=== PATIENT | male | born 1965 | race Two or more races ===

== ENCOUNTER 2025-02-05 10:51 | Inpatient (IN) | payer OTHER ==
[~2025-02-05] VITALS: Ht 193 cm; Wt 108.3 kg
--- NOTE | 2025-02-05 11:29 | ED.PDOC ---
History of Present Illness(SKN HPI Comments 60 y/o M, with PMHx of DM presents to the ED for CC of wound check. Patient reports, that he had his great left toe amputated o7lincu ago, and is in need of wound care. Patient complains, of current 8/10 left foot pain. Patient denies recent fall, injury, or trauma. No other symptoms or modifying factors present at this time. Chief Complaint: Wound Check Time Seen by MD: 11:20 History of Present Illness: Nurses Notes, Medications, Allergies Allergies: Coded Allergies: Penicillins (Verified Allergy, Unknown, 02/05/25) Information Source: Patient Mode of Arrival: Wheelchair Severity: Moderate Timing: Months Duration: Since onset Prehospital treatment: None Location: Foot Developed: Other Condition of Object: None Immunization Status of Animal: NA Tetanus: Unknown History of: Diabetes Associated Signs and Symptoms: None Past Medical History PAST MEDICAL HISTORY: DM Surgical History (Other): left great toe amputation, left ear drum Family History Family History: Family hx of DM Social History Smoker: Non-Smoker Alcohol: Occasionally Drugs: Denies Drug Use Lives In: Home Constitutional: denies: chills, diaphoresis, fatigue, fever, malaise, sweats, weakness, others EENTM: denies: blurred vision, double vision, ear bleeding, ear discharge, ear drainage, ear pain, ear ringing, eye pain, eye redness, hearing loss, mouth pain, mouth swelling, nasal discharge, nose bleeding, nose congestion, nose pain, photophobia, tearing, throat pain, throat swelling, voice changes, others Respiratory: denies: cough, hemoptysis, orthopnea, SOB at rest, shortness of breath, SOB with excertion, stridor, wheezing, others Cardiovascular: denies: chest pain, dizzy spells, diaphoresis, Dyspnea on exertion, edema, irregular heart beat, left arm pain, lightheadedness, palpitations, PND, syncope, others Gastrointestinal: denies: abdomen distended, abdominal pain, blood streaked bowels, constipated, diarrhea, dysphagia, difficulty swallowing, hematemesis, melena, nausea, poor appetite, poor fluid intake, rectal bleeding, rectal pain, vomiting, others Genitourinary: denies: burning, dysuria, flank pain, frequency, hematuria, incontinence, penile discharge, penile sore, pain, testicle pain, testicle swelling, urgency, others Neurological: denies: dizziness, fainting, headache, left sided numbness, left sided weakness, numbness, paresthesia, pre-existing deficit, right sided numbness, right sided weakness, seizure, speech problems, tingling, tremors, weakness, others Musculoskeletal: reports: others (left-foot pain); denies: back pain, gout, joint pain, joint swelling, muscle pain, muscle stiffness, neck pain Integumetry: denies: bruises, change in color, change in hair/nails, dryness, laceration, lesions, lumps, rash, wounds, others Allergic/Immunocompromised: denies: Difficulty Healing, Frequent Infections, Hives, Itching, others Hematologic/Lymphatic: denies: anemia, blood clots, easy bleeding, easy bruisin g, swollen glands, others Endocrine: denies: excessive hunger, excessive sweating, excessive thirst, excessive urination, flushing, intolerance to cold, intolerance to heat, unexplained weight gain, unexplained weight loss, others Psychiatric: denies: anxiety, bipolar disorder, depression, hopeless, panic disorder, schizophrenia, sleepless, suicidal, others All Other Systems: Reviewed and Negative Physical Exam General Appearance: Moderate Distress HEENT: Normal ENT Inspection, Pharynx Normal, TMs Normal Neck: Full Range of Motion, Non-Tender, Normal, Normal Inspection Respiratory: Chest Non-Tender, Lungs Clear, No Accessory Muscle Use, No Respiratory Distress, Normal Breath Sounds Cardiovascular: No Edema, No JVD, No Murmur, No Gallop, Normal Peripheral Pulses, Regular Rate/Rhythm Breast Exam: Deferred Gastrointestinal: No Organomegaly, Non Tender, No Pulsatile Mass, Normal Bowel Sounds, Soft Genitalia: Deferred Pelvic: Deferred Rectal: Deferred Extremities: No calf tenderness, Normal capillary refill, Normal inspection, Normal range of motion, Non-tender, No pedal edema Musculoskeletal : Apperance: Normal Neurologic: Alert, core sucker II-XII nml as Tested, No Motor Deficits, Normal Affect, Normal Mood, No Sensory Deficits Cerebellar Function: Normal Reflexes: Normal Skin: Dry, Normal Color, Warm Lymphatic: No Adenopathy Was a procedure done? Was a procedure done?: No Differential Diagnosis (INTG) Differential Diagnosis: Cellulitis, Puncture Wound, Other (Osteomyelitis) Differential Diagnosis: Cellulitis, Osteomyelitis X-Ray, Labs, Meds, VS Vital Signs Date Time Temp Pulse Resp B/P (MAP) Pulse Ox O2 Delivery O2 Flow Rate FiO2 02/05/25 16:04 97.7 88 17 146/83 (104) 97 97.7 02/05/25 14:17 97.3 85 18 146/82 (103) 98 97.3 02/05/25 12:20 97.8 90 18 153/75 (101) 97 97.8 02/05/25 12:20 90 18 97 Room Air* 0 21 02/05/25 11:24 98.1 95 18 148/78 (101) 98 98.1 Lab Test 02/05/25 12:03 Range/Units White Blood Count 10.6 4.4-10.8 10^3/uL Red Blood Count 4.17 L 4.5-5.90 10^6/uL Hemoglobin 11.8 L 13.5-17.5 g/dL Hematocrit 34.6 L 41.0-53.0 % Mean Corpuscular Volume 83.0 80.0-100.0 fL Mean Corpuscular Hemoglobin 28.3 28.0-32.0 pg Mean Corpuscular Hemoglobin Concent 34.1 32.0-36.0 g/dL Red Cell Distribution Width 14.5 H 11.8-14.3 % Platelet Count 375 140-450 10^3/uL Mean Platelet Volume 7.3 6.9-10.8 fL Neutrophils (%) (Auto) 78.0 37.0-80.0 % Lymphocytes (%) (Auto) 12.2 10.0-50.0 % Monocytes (%) (Auto) 8.6 0.0-12.0 % Eosinophils (%) (Auto) 0.7 0.0-7.0 % Basophils (%) (Auto) 0.5 0.0-2.0 % Neutrophils # (Auto) 8.3 1.6-8.6 10 ^3/uL Lymphocytes # (Auto) 1.3 0.4-5.4 10 ^3/uL Monocytes # (Auto) 0.9 0-1.3 10 ^3/uL Eosinophils # (Auto) 0.1 0-0.8 10 ^3/uL Basophils # (Auto) 0.1 0-0.2 10 ^3/uL Nucleated Red Blood Cells 0.1 % Erythrocyte Sedimentation Rate 78 H 0-20 mm/hr Sodium Level 130 L 136-145 mmol/L Potassium Level 4.1 3.5-5.1 mmol/L Chloride Level 94 L 98-107 mmol/L Carbon Dioxide Level 27 20-31 mmol/L Anion Gap 9 5-15 Blood Urea Nitrogen 14 9-23 mg/dL Creatinine 1.38 H 0.700-1.30 mg/dL Glomerular Filtration Rate Calc 59 >90 mL/min BUN/Creatinine Ratio 10.1 10.0-20.0 Serum Glucose 380 H 74-106 mg/dL Calcium Level 8.9 8.7-10.4 mg/dL Current Medications Medications (Trade) Dose Ordered Sig/Carlos Route Start Time Stop Time Status Last Admin Clindamycin Phosphate 50 ml @ 50 mls/hr ONCE ONCE IV 02/05/25 11:30 02/05/25 12:29 DC 02/05/25 12:27 CT L-FOOT: FINDINGS: The alignment is normal. The joint spaces are normal. There is no fracture, dislocation, or focal osseous lesions. Missing multiple toes with osteoporotic changes. Recommend MRI for further evaluation to exclude osteomyelitis. The soft tissues are normal. IMPRESSION: 1. All CT scans at this medical facility are performed using dose modulation techniques as appropriate to a performed exam including the following: Automated exposure control was utilized; adjustment of the MA and/or KV according to patient size; and use of iterative reconstruction technique. The patient's CBC shows anemia with a hemoglobin of 11.8 The chemistry panel is within normal limits except for creatinine of 1.38 The patient's ESR is 78 The patient is hyperglycemic at 380 At this time, the patient is being admitted to the hospitalist The patient was given clindamycin IV piggyback for the infection to the foot. We can not rule out osteomyelitis Images Reviewed?: Images reviewed and evaluated by me Time of 1ST Reevaluation: 11:50 Reevaluation 1ST: Unchanged Patient Education/Counseling: Diagnosis, Treatment, Prognosis Family Education/Counseling: No Family Present Departure 1 Departure Time of Disposition: 17:42 Impression: Primary Impression: Uncontrolled diabetes mellitus Qualified Codes: E13.65 - Other specified diabetes mellitus with hyperglycemia Additional Impression: Cellulitis of left foot Disposition: ADMITTED INPATIENT Admit to: Med Surg Condition: Fair Critical Care Note Critical Care Time?: No Stability Stability form required: Yes Unstable for transfer: ED Physician Assesment (Clinical assesment) Heart Score Heart Score: Heart Score Response (Comments) Value History N/A 0 EKG N/A 0 Age N/A 0 Risk Factors N/A 0 Troponin N/A 0 Total 0 I personally scribed for MILANA LEVI MD ([email or web address]) on 02/05/25 at 11:29. Electronically submitted by Thao Stokes ([email or web address]). I personally scribed for MILANA LEVI MD ([email or web address]) on 02/05/25 at 17:32. Electronically submitted by Thao Stokes ([email or web address]). MILANA LEVI MD Feb 05, 2025 11:29
[2025-02-05 12:20] VITALS: PULSE 90; RESP 18; O2SAT 97
[2025-02-05 12:20] LABS: Potassium 4.1 mmol/L (3.5-5.1)
[2025-02-05 12:21] LABS: Carbon Dioxide 27 mmol/L (20-31)
[2025-02-05 12:22] LABS: Calcium 8.9 mg/dL (8.7-10.4)
[2025-02-05 12:23] LABS: Anion Gap 9 (5-15); Chloride 94 mmol/L (98-107); Sodium 130 mmol/L (136-145)
[2025-02-05 12:27] LABS: BUN/Creatinine Ratio 10.1 (10.0-20.0); Blood Urea Nitrogen 14 mg/dL (9-23); Glucose 380 mg/dL (74-106)
[2025-02-05] MEDS: CLINDAMYCIN 600MG IV 50 ML IV ONE (12:27)
[2025-02-05 12:30] LABS: Basophils # (auto) 0.1 10 ^3/uL (0-0.2); Basophils % (auto) 0.5 % (0.0-2.0); Eosinophils # (auto) 0.1 10 ^3/uL (0-0.8); Eosinophils % (auto) 0.7 % (0.0-7.0); Hematocrit 34.6 % (41.0-53.0); Hemoglobin 11.8 g/dL (13.5-17.5); Lymphocytes # (auto) 1.3 10 ^3/uL (0.4-5.4); Lymphocytes % (auto) 12.2 % (10.0-50.0); Mean Corpuscular Hemoglobin 28.3 pg (28.0-32.0); Mean Corpuscular Hgb Conc. 34.1 g/dL (32.0-36.0); Monocytes # (auto) 0.9 10 ^3/uL (0-1.3); Monocytes % (auto) 8.6 % (0.0-12.0); Neutrophils # (auto) 8.3 10 ^3/uL (1.6-8.6); Nucleated Red Blood Cells % 0.1 %; Platelet Count (auto) 375 10^3/uL (140-450); Red Blood Cells 4.17 10^6/uL (4.5-5.90); Red Cell Distribution Width 14.5 % (11.8-14.3); White Blood Cell 10.6 10^3/uL (4.4-10.8)
[2025-02-05 13:19] LABS: Erythrocyte Sedimentation Rate 78 mm/hr (0-20)
--- NOTE | 2025-02-05 17:28 | DVH ---
INDICATION: pain and infection COMPARISON: None TECHNIQUE: CT of the right was performed without contrast. Volume transverse images were obtained and reconstructed in multiple planes using bone and soft tissue algorithms. CONTRAST: None Radiation Dose Information: CT Dose: CTDI volume is 7.75 mGy. Dose-length product is 188.65 mGy*cm FINDINGS: The alignment is normal. The joint spaces are normal. There is no fracture, dislocation, or focal osseous lesions. Missing multiple toes with osteoporotic changes. Recommend MRI for further evaluation to exclude oste omyelitis. The soft tissues are normal. IMPRESSION: 1. All CT scans at this medical facility are performed using dose modulation techniques as appropriat e to a performed exam including the following: Automated exposure control was utilized; adjustment of the MA and/or KV according to patient size; and use of iterative reconstruction technique.
[2025-02-05] MEDS ORDERED: VANCOMYCIN PER PHARMACY 0 MG IV SCH (22:15)
[2025-02-05] MEDS ORDERED: ACETAMINOPHEN 325 MG TAB PO PRN (22:15)
[2025-02-05 22:25] LABS: Triglycerides 130 mg/dL (< 150)
[2025-02-05 22:27] LABS: Cholesterol 188 mg/dL (< 200); HDL Cholesterol 50 mg/dL (40-59)
[2025-02-05 22:37] LABS: LDL Cholesterol 126 mg/dL (< 100)
[2025-02-05] MEDS ORDERED: DEXTROSE (50%) 50ML SYRG IV PRN (23:30)
--- NOTE | 2025-02-05 23:32 | DVHHPRES ---
History of Present Illness Resident Creating Document: AMELIA OH History of Present Illness This is a 60-year-old male with past medical history of type 2 diabetes mellitus (noncompliant with any medication and states he does not take any medication at home), the patient presented to the ED with chief complaint of left foot wound. The patient reports that has been having a wound/ulcer in the plantar aspect of the left foot just inferior to the 1st metatarsal bone that has been going on for months. The patient states that yesterday for coming to the ED, he was in psych the [place] after that he noticed it that the wound got painful and started to slightly bleed and have a fool smelling. The patient reports that one year ago he got big toe amputation of the left foot due to a diabetic wound ulcer that was not healing and took IV antibiotics for several weeks. The patient denies fever, chills, lower extremity swelling, chest pain, shortness of breath or any additional symptoms. Upon admission, WBC was slightly elevated, BUN and creatinine were 14 and 1.38 respectively and blood sugar was elevated at 380. Initial CT scan of the left foot showed no fracture, dislocation or focal osseous lesions but was not able to rule out completely osteomyelitis. We will start the patient on IV antibiotics, perform an MRI of the left foot, consult furnace utility operator and admit the patient for further assessment and management. Past medical history: Type 2 diabetes mellitus Home medications: Denies Surgical history: Left big toe amputation one year ago with IV antibiotics for several weeks Social history: Reports occasional alcohol intake but denies any drug intake and states that quit smoking two years ago. Endocrine: Diabetes Past Surgical History: Other (Big left toe amputation) Family History: None Smoke: Quit ALCOHOL: occassional Drugs: None Lives: with Family Domestic Violence: Neg Review of Systems Constitutional: No: Fever, Chills, Sweats, Weakness, Malaise, Other Eyes: No: Pain, Vision change, Conjunctivae inflammation, Eyelid inflammation, Other, Redness ENT: No: Ear pain, Ear discharge, Nose pain, Nose discharge, Nose congestion, Mouth pain, Mouth swelling, Throat pain, Throat swelling, Other Respiratory: No: Cough, Dry, Shortness of breath, SOB with excertion, Wheezing, Hemoptysis, Pleuritic Pain, Sputum, Wheezing, Other Cardiovascular: No: Chest Pain, Palpitations, Orthopnea, Paroxysmal Noc. Dyspnea, Edema, Lt Headedness, Other Gastrointestinal: No: Nausea, Vomiting, Abdominal Pain, Diarrhea, Constipation, Melena, Hematochezia, Other Genitourinary: No Dysuria, No Frequency, No Incontinence, No Hematuria, No Retention, No Other Musculoskeletal: foot pain (Left foot pain at the plantar aspect just below the 1st metatarsal joint); No: other, neck pain, shoulder pain, arm pain, back pain, hand pain, leg pain Skin: Lesions (Wound/ulcer in the plantar aspect of the left foot, with full smelling); No: Rash, Jaundice, Bruising, Other Neurological: No: Weakness, Numbness, Incoordination, Change in speech, Confusion, Seizures, Other Allergies: Coded Allergies: Penicillins (Verified Allergy, Unknown, 02/05/25) Medications Current Medications Medications Dose Ordered Sig/Carlos Route Start Time Stop Time Status Last Admin Dose Admin Acetaminophen 650 mg Q6HP PRN PO 02/05/25 22:15 Acetaminophen/ Hydrocodone Bitart 1 tab Q4HP PRN PO 02/05/25 22:15 Vancomycin HCl 0 ml @ 0 mls/hr UD IV 02/05/25 22:15 UNV Cefepime HCl 50 ml @ 12.5 mls/hr Q12HR IV 02/05/25 22:15 Exam Vital Signs Vital Signs Date Time Temp Pulse Resp B/P (MAP) Pulse Ox O2 Delivery O2 Flow Rate FiO2 02/05/25 19:59 97.7 95 16 153/98 (116) 97 97.7 02/05/25 12:20 Room Air* 0 21 General Appearance: Alert, Oriented X3, Cooperative, No acute distress HEENT: Atraumatic, PERRLA, EOMI, Mucous membr. moist/pink Respiratory: Clear to auscultation, Normal air movement Cardiovascular: Regular rate, Normal S1, Normal S2, No murmurs Abdominal: Normal bowel sounds, Soft, No tenderness, No hepatospenomegaly, No masses Extremities: No clubbing, No cyanosis, Normal pulses, Other (There is a moderate open wounds/ulcer at the plantar aspect of the left foot just below the 1st metatarsal joint which is slightly bleeding and having a full smelling. There is also swelling of the left foot in the dorsal aspect.) Skin: No rashes, No breakdown Neuro: Normal gait, Normal speech, Strength at 5/5 X4 ext, Normal tone, Sensation intact, Cranial nerves 3-12 NL, Reflexes 2+ Psych/Mental Status: Mental status NL, Mood NL Labs/Xrays Labs Test 02/05/25 20:44 02/05/25 12:03 Range/Units Lactic Acid Level 1.7 0.4-2.0 mmol/L White Blood Count 10.6 4.4-10.8 10^3/uL Red Blood Count 4.17 L 4.5-5.90 10^6/uL Hemoglobin 11.8 L 13.5-17.5 g/dL Hematocrit 34.6 L 41.0-53.0 % Mean Corpuscular Volume 83.0 80.0-100.0 fL Mean Corpuscular Hemoglobin 28.3 28.0-32.0 pg Mean Corpuscular Hemoglobin Concent 34.1 32.0-36.0 g/dL Red Cell Distribution Width 14.5 H 11.8-14.3 % Platelet Count 375 140-450 10^3/uL Mean Platelet Volume 7.3 6.9-10.8 fL Neutrophils (%) (Auto) 78.0 37.0-80.0 % Lymphocytes (%) (Auto) 12.2 10.0-50.0 % Monocytes (%) (Auto) 8.6 0.0-12.0 % Eosinophils (%) (Auto) 0.7 0.0-7.0 % Basophils (%) (Auto) 0.5 0.0-2.0 % Neutrophils # (Auto) 8.3 1.6-8.6 10 ^3/uL Lymphocytes # (Auto) 1.3 0.4-5.4 10 ^3/uL Monocytes # (Auto) 0.9 0-1.3 10 ^3/uL Eosinophils # (Auto) 0.1 0-0.8 10 ^3/uL Basophils # (Auto) 0.1 0-0.2 10 ^3/uL Nucleated Red Blood Cells 0.1 % Erythrocyte Sedimentation Rate 78 H 0-20 mm/hr Sodium Level 130 L 136-145 mmol/L Potassium Level 4.1 3.5-5.1 mmol/L Chloride Level 94 L 98-107 mmol/L Carbon Dioxide Level 27 20-31 mmol/L Anion Gap 9 5-15 Blood Urea Nitrogen 14 9-23 mg/dL Creatinine 1.38 H 0.700-1.30 mg/dL Glomerular Filtration Rate Calc 59 >90 mL/min BUN/Creatinine Ratio 10.1 10.0-20.0 Serum Glucose 380 H 74-106 mg/dL Hemoglobin A1c 10.7 H <5.7 % A1C Calcium Level 8.9 8.7-10.4 mg/dL Triglycerides Level 130 < 150 mg/dL Cholesterol Level 188 < 200 mg/dL LDL Cholesterol 126 H < 100 mg/dL HDL Cholesterol 50 40-59 mg/dL Assessment/Plan Assessment/Plan Assessment/plan Acute infected diabetic foot ulcer of the left foot Acute cellulitis of the left foot R/O osteomyelitis of the left foot Uncontrolled type 2 diabetes mellitus with hyperglycemia ROSENDA likely due to vasomotor nephropathy History of left big toe amputation Plan -initial CT scan of the left foot showed no fracture, dislocation or focal osseous lesions but were not able to rule out completely osteomyelitis -ordered MRI of the left foot -patient states that had amputation of the left great toe one year ago and completed several weeks of IV antibiotic -due to exposure to dirty water in the [place] and previous IV antibiotics we will cover both MRSA and Pseudomonas (IV vancomycin and IV cefepime) -consider switching to clindamycin plus ciprofloxacin upon discharge -dorsalis pedis pulse were checked with Doppler ultrasound at bedside and were audible but not palpable -gave 1 L of IV fluids NS 0.9% and continue with maintenance IV fluids at 75 cc/hour -wound consult -daily wound care and wound dressing -ordered culture of the wound with Gram stain -consulted furnace utility operator -start Lantus 25 units q.p.m. plus mild sliding scale insulin -monitor blood glucose closely (goal 140-180mg/dl) Goals of care discussed with the patient at bedside for >35min, FULL CODE Plan discussed with Dr. Bergman Plan discussed with: Patient My Orders Orders - AMELIA OH Procedure Category Date Status Time Admit ADMIT 02/05/25 Transmitted 22:02 Code Status CODE 02/05/25 Transmitted 22:02 Vital Signs ATA 02/05/25 In Process 22:02 Review Orders With ATA 02/05/25 In Process . 22:02 Encourage Activity As ATA 02/05/25 In Process Tolerate 22:02 Consistent DIET 02/06/25 Transmitted Carb(Ccho)Diabetes Breakfast Acetaminophen Tablet PHA 02/05/25 In Process (Tylenol Tablet) 22:15 Notify Of Changes ATA 02/05/25 In Process From Base 22:02 Advance Directive ATA 02/05/25 In Process 22:02 Urinalysis LAB 02/05/25 Logged 22:02 Complete Blood Count LAB 02/06/25 Verified 04:00 Patient Condition ORDERS 02/05/25 Transmitted 22:02 Allergies ATA 02/05/25 In Process 22:02 Hydrocodone-Acet PHA 02/05/25 In Process 5/325mg Tab ([place] 22:15 Drug Screen LAB 02/05/25 Logged 22:02 Mri L Foot Wo W MRI 02/05/25 Logged Contrast 22:10 Vancomycin Per PHA 02/05/25 Pending Pharmacy 22:15 Cefepime 2gm/50ml Ns PHA 02/05/25 In Process (Maxipime 2gm/50ml) 22:15 Sodium Chloride 0.9% PHA 02/06/25 In Process 01:00 Clean Wound ED NURSING 02/05/25 Transmitted Wound Culture W/ Gs RADHA 02/05/25 Logged 22:11 Wound Dressing ED NURSING 02/05/25 Transmitted * Wound Consult CONS 02/05/25 Transmitted Podiatry Consult CONS 02/05/25 Transmitted 22:11 Vancomycin PHA 02/05/25 In Process 1.75gm/350ml 22:30 Insulin Lantus PHA 02/05/25 Verified (Glargine) (Lantus) 23:30 Glucose Blood PHA 02/06/25 Verified (Accu-Chek Comfort 07:00 Mild Sliding Scale PHA 02/06/25 Verified 07:00 Dextrose 50% Syringe PHA 02/05/25 Verified 23:30 Date of Service: Feb 05, 2025 Billing Provider: AIDA BERGMAN MD Common Visit Codes: [id number] INP/OBS CARE (HIGH) Secondary Visit Codes: [id number] CARE PLAN 30 MINUTES AMELIA OH RESIDENT Feb 05, 2025 23:32
[2025-02-05] MEDS: SODIUM CHLORIDE 0.9% 1,000 ML IV ONE (23:48)
[2025-02-06] VITALS (7 sets, daily range): BP systolic 133–164; BP diastolic 73–92; PULSE 87–92; RESP 17–20; TEMP 96.5–97.8; O2SAT 94–99
[2025-02-06] MEDS: VANCOMYCIN 1.75GM/350ML IV ONE (00:39)
[2025-02-06] MEDS: INSULIN LANTUS (GLARGINE) 1 /0.01ml (100units/ml) SC SCH (00:39)
[2025-02-06] MEDS: SODIUM CHLORIDE 0.9% 1,000 ML IV ONE (01:11)
[2025-02-06] MEDS: CEFEPIME 2GM/50ML NS 50 ML IV SCH (02:31)
[2025-02-06 06:02] LABS: Basophils # (auto) 0.1 10 ^3/uL (0-0.2); Basophils % (auto) 0.7 % (0.0-2.0); Eosinophils # (auto) 0.2 10 ^3/uL (0-0.8); Eosinophils % (auto) 2.5 % (0.0-7.0); Hematocrit 35.2 % (41.0-53.0); Hemoglobin 11.9 g/dL (13.5-17.5); Lymphocytes # (auto) 1.4 10 ^3/uL (0.4-5.4); Lymphocytes % (auto) 16.4 % (10.0-50.0); Mean Corpuscular Hemoglobin 28.2 pg (28.0-32.0); Mean Corpuscular Hgb Conc. 33.8 g/dL (32.0-36.0); Mean Corpuscular Volume 83.4 fL (80.0-100.0); Monocytes # (auto) 0.7 10 ^3/uL (0-1.3); Monocytes % (auto) 8.6 % (0.0-12.0); Neutrophils % (auto) 71.8 % (37.0-80.0); Platelet Count (auto) 381 10^3/uL (140-450); Red Blood Cells 4.22 10^6/uL (4.5-5.90); Red Cell Distribution Width 14.7 % (11.8-14.3); White Blood Cell 8.3 10^3/uL (4.4-10.8)
[2025-02-06] MEDS: InsuLIN REG 1unit/0.01ml Soln (100units/ml) SC SCH (07:18)
[2025-02-06] MEDS: ACCU-CHEK COMFORT CURVE STRIP VI SCH (07:20)
--- NOTE | 2025-02-06 11:37 | DVHPNRES ---
Progress Note Date Seen: Feb 06, 2025 Resident Creating Document: ZACHARIAH GREWAL RESIDENT Medical Necessity Reason Pt with a Central, PICC or Fol: No Subjective Review of Systems 60-year-old male with past medical history of type 2 diabetes mellitus (noncompliant with any medication and states he does not take any medication at home), the patient presented to the ED with chief complaint of left foot wound. The patient reports that has been having a wound/ulcer in the plantar aspect of the left foot just inferior to the 1st metatarsal bone that has been going on for months. The patient states that yesterday for coming to the ED, he was in psych the [facility] after that he noticed it that the wound got painful and started to slightly bleed and have a fool smelling. The patient reports that one year ago he got big toe amputation of the left foot due to a diabetic wound ulcer that was not healing and took IV antibiotics for several weeks. The patient denies fever, chills, lower extremity swelling, chest pain, shortness of breath or any additional symptoms. Upon admission, WBC was slightly elevated, BUN and creatinine were 14 and 1.38 respectively and blood sugar was elevated at 380. Initial CT scan of the left foot showed no fracture, dislocation or focal osseous lesions but was not able to rule out completely osteomyelitis -patient states that had amputation of the left great toe one year ago and completed several weeks of IV antibiotic CONSTITUTIONAL: Denies weight loss, fever and chills. HEENT: Denies changes in vision and hearing. RESPIRATORY: Denies SOB and cough. CV: Denies palpitations and chest pain. GI: Denies abdominal pain, nausea, vomiting and diarrhea. : Denies dysuria and urinary frequency. MSK: Left foot pain at the plantar aspect just below the 1st metatarsal joint SKIN: Denies rash and pruritus. NEUROLOGICAL: Denies headache Objective vital signs Vital Sign Date Time Temp Pulse Resp B/P (MAP) Pulse Ox O2 Delivery O2 Flow Rate FiO2 02/06/25 08:00 97.4 89 18 133/73 (93) 97 97.4 02/06/25 07:28 Room Air* 0 21 Total Intake and Output 02/05/25 02/05/25 02/06/25 15:00 23:00 07:00 Intake Total 1362.5 ml Balance 1362.5 ml medications Current Medications Medications Dose Ordered Sig/Carlos Route Start Time Stop Time Status Last Admin Dose Admin Acetaminophen 650 mg Q6HP PRN PO 02/05/25 22:15 Acetaminophen/ Hydrocodone Bitart 1 tab Q4HP PRN PO 02/05/25 22:15 Vancomycin HCl 0 ml @ 0 mls/hr UD IV 02/05/25 22:15 Cefepime HCl 50 ml @ 12.5 mls/hr Q12HR IV 02/05/25 22:15 02/06/25 09:00 12.5 MLS/HR Insulin Glargine 25 units QPM SC 02/05/25 23:30 02/06/25 00:39 25 UNITS Diagnostic Test (Pha) 1 strip ACHS 02/06/25 07:00 02/06/25 07:20 1 STRIP Insulin Human Regular ACHS SC 02/06/25 07:00 02/06/25 07:18 8 UNITS Dextrose 50 ml UD PRN IV 02/05/25 23:30 Examination GENERAL: Not in acute distress. HEENT: EOMI, Moist mucous membranes. No scleral icterus. No cervical lymphadenopathy. LUNGS: Clear to auscultation bilaterally. No accessory muscle use. CARDIOVASCULAR: Regular rate and rhythm. No murmur. No JVD. ABDOMEN: Soft, nontender and nondistended. No palpable masses. EXTREMITIES: There is a moderate open wounds/ulcer at the plantar aspect of the left foot just below the 1st metatarsal joint which is slightly bleeding and having a full smelling. There is also swelling of the left foot in the dorsal aspect. SKIN: No rashes or lesions. Warm. NEUROLOGIC: Alert and oriented X3 laboratory and microbiology Laboratory Tests 02/06/25 05:38 02/05/25 12:03 Test 02/05/25 12:03 Range/Units Serum Glucose 380 H 74-106 mg/dL Problem List/Assessment/Plan Problem List/Assessment/Plan # Acute infected diabetic foot ulcer of the left foot # Acute cellulitis of the left foot # Rule Out osteomyelitis of the left foot # Uncontrolled type 2 diabetes mellitus with hyperglycemia # ROSENDA likely due to vasomotor nephropathy # History of left big toe amputation -initial CT scan of the left foot showed no fracture, dislocation or focal osseous lesions but were not able to rule out completely osteomyelitis - MRI of the left foot: - -patient states that had amputation of the left great toe one year ago and completed several weeks of IV antibiotic - exposure to dirty water in the [place] and previous IV antibiotics - continue with maintenance IV fluids at 75 cc/hour - 1 L IV fluid, NS was given -daily wound care and wound dressing -ordered culture of the wound with Gram stain -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 plus mild sliding scale insulin -monitor blood glucose closely Goal of care discussed with patient for 26 minute: Full code Plan discussed with Dr. Stover Plan discussed with: Patient Dietary Evaluation Review Recommendations by RD: Dietary education by RD, Protein Supplementation Comments: 1) Change diet from 45g CCHO to 60g CCHO. Patient is 76". Encourage optimal PO intake 2) Initiate Brendan @ 1 pk bid 3) Initiate MVI @ 1 tb qd 4) Initiate zinc sulfate @ 220 mg for 10 days 5) Refer to outpatient RD/[facility] for diabetes education 6) Follow-up with podiatry 7) Continue to monitor I&O, labs, and skin integrity Expected Outcomes/Goals: 1) appetite and labs to improve 2) wound to improve 3) f/u in 3-5 days Date of Service: Feb 06, 2025 Billing Provider: JUDY STOVER MD Common Visit Codes: [id number] INP/OBS CARE(HIGH) Secondary Visit Codes: [id number] CARE PLAN 30 MINUTES ZACHARIAH GREWAL RESIDENT Feb 06, 2025 11:37 JUDY STOVER MD Feb 06, 2025 22:27
[2025-02-06 12:04] LABS: Urine Bacteria FEW /hpf (None Seen); Urine Blood 1+ /uL (Negative); Urine Clarity Turbid (Clear); Urine Color Light-Yellow (Yellow); Urine Hyaline Cast FEW /lpf (0 - 2); Urine Mucus FEW (None Seen); Urine Protein, UAD 1+ (Negative); Urine Specific Gravity 1.029 (1.001-1.035); Urine Squamous Epithelial Cell FEW /hpf (<5); Urine Urobilinogen Normal (Negative); Urine WBC 98 /HPF (0-3); Urine WBC Clumps PRESENT /hpf (None Seen); Urine pH 5.5 (5.0-9.0)
[2025-02-06 12:14] LABS: Amphetamine Screen, Urine Pos (NEGATIVE); Barbiturate Scree,Urine Neg (NEGATIVE); Benzodiazephine Screen, Urine Neg (NEGATIVE); Cannabinoid Screen, Urine Neg (NEGATIVE); Cocaine Screen, Urine Neg (NEGATIVE); Opiate Scree,Urine Neg (NEGATIVE); Phencyclidine Screen, Urine Neg (NEGATIVE)
--- NOTE | 2025-02-06 15:34 | DVH ---
EXAMINATION: MRI MRI L FOOT WO CONTRAST TECHNIQUE: MRI of the left foot was performed. Multisequence multiplanar images were obtained witho ut contrast. HISTORY: osteomyelitis COMPARISON: CT CT L FOOT WO CONTRAST on DOS: 02/05/25 FINDINGS/IMPRESSION : Post resection of the 1st digit from the level of the metatarsal. Diffuse subcutaneous soft-tissue edema and swelling suspicious for cellulitis. This is most severe ar ound the 2nd MTP. There is probable fistulous tract and ulceration involving the inferior aspect of t he foot at the level of the distal 2nd metatarsal. Bone marrow edema consistent with osteomyelitis is present involving the 2nd metatarsal and 2nd proxi mal phalanx.
[2025-02-06] MEDS: HYDROcodone-ACET 5/325MG TAB PO PRN (22:23)
[2025-02-07 01:00] VITALS: BP 133/74; PULSE 82; RESP 17; TEMP 97.9; O2SAT 96
[2025-02-07 05:00] VITALS: BP 145/76; PULSE 82; RESP 17; TEMP 97.5; O2SAT 94
[2025-02-07 05:53] LABS: Basophils # (auto) 0.1 10 ^3/uL (0-0.2); Basophils % (auto) 0.9 % (0.0-2.0); Eosinophils # (auto) 0.3 10 ^3/uL (0-0.8); Hematocrit 32.3 % (41.0-53.0); Lymphocytes # (auto) 1.7 10 ^3/uL (0.4-5.4); Lymphocytes % (auto) 26.3 % (10.0-50.0); Mean Corpuscular Volume 82.4 fL (80.0-100.0); Monocytes # (auto) 0.5 10 ^3/uL (0-1.3); Monocytes % (auto) 8.4 % (0.0-12.0); Neutrophils # (auto) 3.8 10 ^3/uL (1.6-8.6); Neutrophils % (auto) 59.4 % (37.0-80.0); Platelet Count (auto) 375 10^3/uL (140-450); Red Blood Cells 3.92 10^6/uL (4.5-5.90); Red Cell Distribution Width 14.1 % (11.8-14.3); White Blood Cell 6.5 10^3/uL (4.4-10.8)
[2025-02-07 09:00] VITALS: BP_SYST 137; BP_SYST 142; BP_DIAS 66; BP_DIAS 85; PULSE 139; PULSE 80; RESP 16; RESP 18; TEMP 97.8; TEMP 98.3; O2SAT 95; O2SAT 98
[2025-02-07 09:43] LABS: Protein, Urine 93.7 mg/dL (1-14)
[2025-02-07 09:46] LABS: Creatinine, Urine 100.34 mg/dL (30.0-125.0); Urine Protein/Creatinine Ratio 0.93
[2025-02-07 09:54] LABS: Alanine Aminotransferase 17 U/L (7-40); Alkaline Phosphatase 90 U/L (46-116); Total Protein 6.7 g/dL (5.7-8.2)
[2025-02-07 09:55] LABS: Albumin 3.7 g/dL (3.2-4.8); Aspartate Aminotransferase 14 U/L (<34)
[2025-02-07 09:57] LABS: Bilirubin, Direct < 0.1 mg/dL (<0.3); Bilirubin, Total 0.3 mg/dL (0.2-1.0)
[2025-02-07 10:50] LABS: INR 0.99 (0.9-1.15); Partial Thromboplastin Time 29.1 SEC (24.5-34.5); Prothrombin Time 10.5 sec (9.3-11.8)
--- NOTE | 2025-02-07 12:40 | DVH ---
CHEST RADIOGRAPH Indication: I and D possible biopsy Technique: Single frontal view of the chest was obtained Comparison: None FINDINGS: Lines and Tubes: None Lungs: No focal consolidation. Pleura: No effusion. No pneumothorax. Cardiomediastinal contours: Unremarkable Bones: No acute osseous abnormality. IMPRESSION: 1. No acute cardiopulmonary disease.
[2025-02-07 13:00] VITALS: BP 149/88; PULSE 73; RESP 16; TEMP 97.3; O2SAT 95
[2025-02-07] MEDS: VANCOMYCIN 1.5GM/300ML 300 ML IV SCH (14:51)
--- NOTE | 2025-02-07 15:32 | DVHPNRES ---
Progress Note Date Seen: Feb 07, 2025 Resident Creating Document: DEDRICK JOSUE RESIDENT Medical Necessity Reason Pt with a Central, PICC or Fol: No Subjective Review of Systems 60-year-old male with past medical history of type 2 diabetes mellitus (noncompliant with any medication and states he does not take any medication at home), the patient presented to the ED with chief complaint of left foot wound. The patient reports that has been having a wound/ulcer in the plantar aspect of the left foot just inferior to the 1st metatarsal bone that has been going on for months. The patient states that yesterday for coming to the ED, he was in psych the [facility] after that he noticed it that the wound got painful and started to slightly bleed and have a fool smelling. The patient reports that one year ago he got big toe amputation of the left foot due to a diabetic wound ulcer that was not healing and took IV antibiotics for several weeks. The patient denies fever, chills, lower extremity swelling, chest pain, shortness of breath or any additional symptoms. Upon admission, WBC was slightly elevated, BUN and creatinine were 14 and 1.38 respectively and blood sugar was elevated at 380. Initial CT scan of the left foot showed no fracture, dislocation or focal osseous lesions but was not able to rule out completely osteomyelitis Patient seen and examined at the bedside. Left food dressing removed, showing base of the sole proximal to 2nd MTP shows draining deep ulcer with purulent material, surrounding superficial edema, and numbness. First toe amputation seen. Left foot has a dry wound on 1st big toe. Objective vital signs Vital Sign Date Time Temp Pulse Resp B/P (MAP) Pulse Ox O2 Delivery O2 Flow Rate FiO2 02/07/25 13:00 97.3 73 16 149/88 (108) 95 97.3 02/07/25 08:08 Room Air* 0 21 Total Intake and Output 02/06/25 02/06/25 02/07/25 15:00 23:00 07:00 Intake Total 50.0 ml 540 ml 300 ml Balance 50.0 ml 540 ml 300 ml medications Current Medications Medications Dose Ordered Sig/Carlos Route Start Time Stop Time Status Last Admin Dose Admin Acetaminophen 650 mg Q6HP PRN PO 02/05/25 22:15 Acetaminophen/ Hydrocodone Bitart 1 tab Q4HP PRN PO 02/05/25 22:15 02/06/25 22:23 1 TAB Vancomycin HCl 0 ml @ 0 mls/hr UD IV 02/05/25 22:15 Cefepime HCl 50 ml @ 12.5 mls/hr Q12HR IV 02/05/25 22:15 02/07/25 09:15 12.5 MLS/HR Insulin Glargine 25 units QPM SC 02/05/25 23:30 02/06/25 17:33 25 UNITS Diagnostic Test (Pha) 1 strip ACHS 02/06/25 07:00 02/07/25 10:55 1 STRIP Insulin Human Regular ACHS SC 02/06/25 07:00 02/07/25 10:58 3 UNITS Dextrose 50 ml UD PRN IV 02/05/25 23:30 Vancomycin HCl 300 ml @ 200 mls/hr Q12H IV 02/07/25 14:00 02/07/25 14:51 200 MLS/HR Examination Patient lying in bed, in no acute distress General: Over Weight, afebrile, palor, mucosae are moist Cardiovascular: Regular S1 and S2. No murmurs, gallops or rubs. No JVD elevation. No pedal edema Respiratory: Normal B/L air entry on room air. Clear lung sounds on auscultation Abdomen: Soft, nontender, nondistended, normoactive bowel sounds, no rebound tenderness, no organomegaly, no masses Genitourinary: Deferred MSK/skin: Mobilizes 4 limbs. Skin is dry and warm. Left food dressing removed, showing base of the sole proximal to 2nd MTP shows draining deep ulcer with purulent material, surrounding superficial edema, and numbness. First toe amputation seen. Left foot has a dry wound on 1st big toe. Neurological: No motor, no sensitive deficits, normal speech. Pupils are isocoric and reactive. Psych/Mental Status: A/Ox3 laboratory and microbiology Laboratory Tests 02/07/25 04:59 02/05/25 12:03 Test 02/05/25 12:03 Range/Units Serum Glucose 380 H 74-106 mg/dL Microbiology Date/Time Source Procedure Growth Status 02/06/25 10:55 Foot Left Gram Stain - Final Resulted 02/06/25 10:55 Foot Left Wound Culture - Preliminary Resulted Labs and/or images reviewed: Labs reviewed by me, Image(s) reviewed by me Problem List/Assessment/Plan Problem List/Assessment/Plan Acute osteomyelitis of the left foot Acute infected diabetic foot ulcer Right toe wound Uncontrolled type 2 diabetes mellitus with hyperglycemia-hemoglobin A1c 10.7 History of left big toe amputation 2 years back Left foot MRI shows Diffuse subcutaneous soft-tissue edema and swelling suspicious for cellulitis. This is most severe around the 2nd MTP. There is probable fistulous tract and ulceration involving the inferior aspect of the foot at the level of the distal 2nd metatarsal. Bone marrow edema consistent with osteomyelitis is present involving the 2nd metatarsal and 2nd proximal phalanx. ESR 78 on arrival. 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 NPO after midnight Pain control with [place] Uncontrolled hypertension Lisinopril 10 mg daily ROSENDA likely vasomotor mediated Creatinine 1.38 on arrival, downtrending Anemia, likely normocytic Monitor Hyponatremia, likely chronic Monitor Acute cystitis On IV antibiotics Wean bacterial culture pending Dyslipidemia Atorvastatin 40 mg daily. Amphetamine use dependence Counseled regarding cessation for more than 20 minutes Diet NPO after midnight Plan discussed with patient in which all questions have been answered Goals of care discussed more than 28 minutes, full code status Case discussed with Dr. Stover Plan discussed with: Patient My Orders My Orders Orders - DEDRICK JOSUE Procedure Category Date Status Time Vitamin B12 LAB 02/07/25 In Process 09:07 Vitamin D, 25-Hydroxy LAB 02/07/25 In Process 09:07 Blood Culture RADHA 02/07/25 In Process 09:07 Dietary Evaluation Review Recommendations by RD: Dietary education by RD, Protein Supplementation Comments: 1) Change diet from 45g CCHO to 60g CCHO. Patient is 76". Encourage optimal PO intake 2) Initiate Brendan @ 1 pk bid 3) Initiate MVI @ 1 tb qd 4) Initiate zinc sulfate @ 220 mg for 10 days 5) Refer to outpatient RD/[facility] for diabetes education 6) Follow-up with podiatry 7) Continue to monitor I&O, labs, and skin integrity Expected Outcomes/Goals: 1) appetite and labs to improve 2) wound to improve 3) f/u in 3-5 days Date of Service: Feb 07, 2025 Billing Provider: JUDY STOVER MD Common Visit Codes: [id number] INP/OBS CARE(HIGH) DEDRICK JOSUE Feb 07, 2025 15:32 JUDY STOVER MD Feb 09, 2025 21:13
[2025-02-07 17:00] VITALS: BP 156/84; PULSE 77; RESP 16; TEMP 99.1; O2SAT 97
[2025-02-07] MEDS: LISINOPRIL 5 MG TAB PO ONE (17:13)
[2025-02-07 21:00] VITALS: BP 143/85; PULSE 81; RESP 19; TEMP 98.1; O2SAT 98
[2025-02-07] MEDS: ATORVASTATIN 20 MG TAB PO SCH (21:53)
[2025-02-08] VITALS (8 sets, daily range): BP systolic 117–159; BP diastolic 63–85; PULSE 71–105; RESP 16–95; TEMP 97.1–98.6; O2SAT 82–99
[2025-02-08] MEDS ORDERED: VANCOMYCIN 1.5GM/300ML 300 ML IV ONE (02:24)
[2025-02-08 08:11] LABS: Basophils # (auto) 0.1 10 ^3/uL (0-0.2); Basophils % (auto) 0.8 % (0.0-2.0); Eosinophils # (auto) 0.3 10 ^3/uL (0-0.8); Eosinophils % (auto) 4.8 % (0.0-7.0); Hemoglobin 11.5 g/dL (13.5-17.5); Lymphocytes # (auto) 1.6 10 ^3/uL (0.4-5.4); Lymphocytes % (auto) 22.2 % (10.0-50.0); Mean Corpuscular Hemoglobin 28.2 pg (28.0-32.0); Mean Corpuscular Hgb Conc. 33.8 g/dL (32.0-36.0); Mean Corpuscular Volume 83.2 fL (80.0-100.0); Monocytes # (auto) 0.6 10 ^3/uL (0-1.3); Monocytes % (auto) 7.9 % (0.0-12.0); Neutrophils # (auto) 4.6 10 ^3/uL (1.6-8.6); Neutrophils % (auto) 64.3 % (37.0-80.0); Nucleated Red Blood Cells % 0.1 %; Platelet Count (auto) 401 10^3/uL (140-450); Red Blood Cells 4.09 10^6/uL (4.5-5.90); Red Cell Distribution Width 14.5 % (11.8-14.3); White Blood Cell 7.1 10^3/uL (4.4-10.8)
[2025-02-08 08:29] LABS: Alanine Aminotransferase 17 U/L (7-40); Albumin 3.8 g/dL (3.2-4.8); Alkaline Phosphatase 88 U/L (46-116); Anion Gap 11 (5-15); Aspartate Aminotransferase 15 U/L (<34); BUN/Creatinine Ratio 13.5 (10.0-20.0); Bilirubin, Total 0.4 mg/dL (0.2-1.0); Blood Urea Nitrogen 15 mg/dL (9-23); Calcium 9.6 mg/dL (8.7-10.4); Carbon Dioxide 24 mmol/L (20-31); Chloride 102 mmol/L (98-107); Potassium 4.1 mmol/L (3.5-5.1); Sodium 137 mmol/L (136-145); Total Protein 6.9 g/dL (5.7-8.2)
[2025-02-08 08:32] LABS: Glucose 153 mg/dL (74-106)
--- NOTE | 2025-02-08 09:09 | DVHINCON2 ---
Date Seen: Feb 08, 2025 Reason for Consultation Left foot wound History of Present Illness This is a 60-year-old male with past medical history of type 2 diabetes mellitus (noncompliant with any medication and states he does not take any medication at home), the patient presented to the ED with chief complaint of left foot wound. The patient reports that has been having a wound/ulcer in the plantar aspect of the left foot just inferior to the 1st metatarsal bone that has been going on for months. The patient states that yesterday for coming to the ED, he was in psych the [facility] after that he noticed it that the wound got painful and started to slightly bleed and have a fool smelling. The patient reports that one year ago he got big toe amputation of the left foot due to a diabetic wound ulcer that was not healing and took IV antibiotics for several weeks. The patient denies fever, chills, lower extremity swelling, chest pain, shortness of breath or any additional symptoms. Upon admission, WBC was slightly elevated, BUN and creatinine were 14 and 1.38 respectively and blood sugar was elevated at 380. Initial CT scan of the left foot showed no fracture, dislocation or focal osseous lesions but was not able to rule out completely osteomyelitis. 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 Past Medical History See H&P Past Surgical History See H&P Family History: Patient reports no known family medical history. Allergies: Coded Allergies: Penicillins (Verified Allergy, Unknown, 02/05/25) Current Medications Current Medications Medications (Trade) Dose Ordered Sig/Carlos Route PRN Reason Start Time Stop Time Status Last Admin Vancomycin HCl 300 ml @ 200 mls/hr Q12H IV 02/07/25 14:00 02/08/25 02:26 Lisinopril (Zestril Tablet) 5 mg DAILY PO 02/08/25 10:00 Atorvastatin Calcium (Lipitor) 40 mg HS PO 02/07/25 22:00 02/07/25 21:53 Vital Signs Vital Signs Date Time Temp Pulse Resp B/P (MAP) Pulse Ox O2 Delivery O2 Flow Rate FiO2 02/08/25 07:44 Room Air* 0 21 02/08/25 05:00 97.5 71 19 138/63 (88) 96 97.5 Physical Exam Dermatological: Skin is dry with mild erythema and some maceration around the wound site No gross deformities noted Mild non-pitting edema present bilaterally Wound: Location: at the plantar aspect of the right first metatarsal head. Measures: _ cm in length, _ cm in width, and _ cm in depth. Depth: Full thickness Base: Mix of granulation/slough Drainage: None Odor: None Periwound: Intact Vascular: Dorsalis pedis and posterior tibial pulses are 1+ bilaterally Capillary refill is under 2 seconds Skin temperature is warm bilaterally Neurologic: Protective sensation is absent on the plantar forefoot bilaterally Monofilament testing reveals decreased sensation in multiple plantar sites Musculoskeletal: Range of motion at the ankle and MTP joints is within normal limits. Strength is 5/5 in all tested muscle groups. Gait is antalgic due to offloading of the affected limb. Labs/Diagnostic Data Labs Test 02/08/25 07:09 02/08/25 05:45 02/07/25 10:09 02/07/25 04:59 Range/Units White Blood Count 7.1 4.4-10.8 10^3/uL Red Blood Count 4.09 L 4.5-5.90 10^6/uL Hemoglobin 11.5 L 13.5-17.5 g/dL Hematocrit 34.0 L 41.0-53.0 % Mean Corpuscular Volume 83.2 80.0-100.0 fL Mean Corpuscular Hemoglobin 28.2 28.0-32.0 pg Mean Corpuscular Hemoglobin Concent 33.8 32.0-36.0 g/dL Red Cell Distribution Width 14.5 H 11.8-14.3 % Platelet Count 401 140-450 10^3/uL Mean Platelet Volume 7.2 6.9-10.8 fL Neutrophils (%) (Auto) 64.3 37.0-80.0 % Lymphocytes (%) (Auto) 22.2 10.0-50.0 % Monocytes (%) (Auto) 7.9 0.0-12.0 % Eosinophils (%) (Auto) 4.8 0.0-7.0 % Basophils (%) (Auto) 0.8 0.0-2.0 % Neutrophils # (Auto) 4.6 1.6-8.6 10 ^3/uL Lymphocytes # (Auto) 1.6 0.4-5.4 10 ^3/uL Monocytes # (Auto) 0.6 0-1.3 10 ^3/uL Eosinophils # (Auto) 0.3 0-0.8 10 ^3/uL Basophils # (Auto) 0.1 0-0.2 10 ^3/uL Nucleated Red Blood Cells 0.1 % Sodium Level 137 # 136-145 mmol/L Potassium Level 4.1 3.5-5.1 mmol/L Chloride Level 102 98-107 mmol/L Carbon Dioxide Level 24 20-31 mmol/L Anion Gap 11 5-15 Blood Urea Nitrogen 15 9-23 mg/dL Creatinine 1.11 0.700-1.30 mg/dL Glomerular Filtration Rate Calc 76 >90 mL/min BUN/Creatinine Ratio 13.5 10.0-20.0 Serum Glucose 153 #H 74-106 mg/dL Calcium Level 9.6 8.7-10.4 mg/dL Magnesium Level 2.0 1.6-2.6 mg/dL Total Bilirubin 0.4 0.2-1.0 mg/dL Aspartate Amino Transferase (AST) 15 <34 U/L Alanine Aminotransferase (ALT) 17 7-40 U/L Alkaline Phosphatase 88 46-116 U/L Total Protein 6.9 5.7-8.2 g/dL Albumin 3.8 3.2-4.8 g/dL POC Glucose 157 H 70-106 mg/dl Prothrombin Time 10.5 9.3-11.8 sec Prothrombin Time INR 0.99 0.9-1.15 Activated Partial Thromboplast Time 29.1 24.5-34.5 SEC Direct Bilirubin < 0.1 <0.3 mg/dL Thyroid Stimulating Hormone (TSH) 2.41 0.55-4.78 uIU/mL Random Vancomycin Level 4.9 L 5-10 ug/mL Test 02/06/25 10:55 02/05/25 20:44 02/05/25 12:03 Range/Units Urine Color Light-yellow Yellow Urine Clarity Turbid H Clear Urine pH 5.5 5.0-9.0 Urine Specific [place] 1.029 1.001-1.035 Urine Protein 1+ H Negative Urine Ketones Negative Negative Urine Blood 1+ H Negative /uL Urine Nitrite Negative Negative Urine Bilirubin Negative Negative Urine Urobilinogen Normal Negative mg/dL Urine Leukocyte Esterase 3+ Negative /uL Urine RBC 7 0 - 3 /hpf Urine WBC Clumps Present None Seen /hpf Urine Microscopic WBC 98 H 0-3 /HPF Urine Squamous Epithelial Cells Few <5 /hpf Urine Bacteria Few H None Seen /hpf Urine Hyaline Casts Few 0 - 2 /lpf Urine Mucus Few None Seen Urine Creatinine 100.34 30.0-125.0 mg/dL Urine Protein/Creatinine Ratio 0.93 Urine Sodium 64 40-220 mmol/L Urine Glucose 4+ H Normal mg/dL Urine Total Protein 93.7 H 1-14 mg/dL Urine Opiates Screen Neg NEGATIVE Urine Fentanyl Screen Neg NEGATIVE Urine Barbiturates Screen Neg NEGATIVE Urine Phencyclidine Screen Neg NEGATIVE Urine Amphetamines Screen Pos NEGATIVE Urine Benzodiazepines Screen Neg NEGATIVE Urine Cocaine Screen Neg NEGATIVE Urine Cannabinoids Screen Neg NEGATIVE Lactic Acid Level 1.7 0.4-2.0 mmol/L Erythrocyte Sedimentation Rate 78 H 0-20 mm/hr Hemoglobin A1c 10.7 H <5.7 % A1C Triglycerides Level 130 < 150 mg/dL Cholesterol Level 188 < 200 mg/dL LDL Cholesterol 126 H < 100 mg/dL HDL Cholesterol 50 40-59 mg/dL Microbiology Date/Time Source Procedure Growth Status 02/06/25 10:55 Foot Left Gram Stain - Final Resulted 02/06/25 10:55 Foot Left Wound Culture - Preliminary Resulted Assessment ASSESSMENT: Patient is a 60 year old seen on the floor for a worsening ulcer PLAN: - The patients chart was reviewed, clinical findings were discussed with the patient, the etiologies of the conditions were discussed in detail, and a treatment plan was agreed to at this time, with both oral and written instructions provided. - reviewed advanced imaging - discussed plan is to perform an incision and drainage - patient has been NPO since midnight - take him to the OR today - we will get cultures in the OR - can weightbear as tolerated in postoperative shoe All questions were answered and concerns addressed to the patient's satisfaction. The patient was given the phone number to the clinic and was told how to make contact with the clinic should any concerns or questions arise. Patient understands that if any questions or concerns arise prior to the next appointment, we should be contacted immediately. FOLLOW-UP: Continue to follow while inpatient Problems(with codes): (1) Uncontrolled diabetes mellitus (2) Cellulitis of left foot Plan discussed with: Patient Date of Service: Feb 08, 2025 Billing Provider: YUNG DIAZ DPM Common Visit Codes: CONSULT ONLY Consultation Codes: [id number] CONSULT <80MIN YUNG DIAZ DPM Feb 08, 2025 09:09
[2025-02-08] MEDS: LISINOPRIL 5 MG TAB PO SCH (09:39)
[2025-02-08] MEDS ORDERED: MIDAZOLAM HCL 2MG/2ML 2ml VIAL (1mg/ml) ONE (09:54)
[2025-02-08] MEDS ORDERED: KETAMINE 50mg/ML 1ml syringe ONE (09:54)
[2025-02-08] MEDS ORDERED: PROPOFOL 10 MG/ML 20 ML IV ONE (09:54)
[2025-02-08] MEDS ORDERED: ONDANSETRON HCL 4 MG/2 ML VIAL ONE (09:54)
[2025-02-08] MEDS ORDERED: fentaNYL CITRATE 100 MCG/2 ML VL ONE (09:54)
[2025-02-08] MEDS ORDERED: LIDOCAINE 1% INJ PF 5ML AMP ONE (09:54)
[2025-02-08] MEDS ORDERED: SODIUM CHLORIDE LOCK 10 ML ONE (09:54)
[2025-02-08] MEDS: BUPIVACAINE HCL 50 ML ONE (10:56)
[2025-02-08] MEDS ORDERED: MORPHINE SULFATE INJ 2 MG/ml SYRG IV PRN (11:15)
[2025-02-08] MEDS ORDERED: HYDROmorphone HCL 2 MG/ML VL/or syr IV PRN ×2 (11:15)
[2025-02-08] MEDS: METOCLOPRAMIDE HCL 5MG/ml INJ 2ml VIAL IV ONE (11:15)
[2025-02-08] MEDS: ACCU-CHEK COMFORT CURVE STRIP VI ONE (11:15)
[2025-02-08] MEDS ORDERED: MORPHINE SULFATE 4 MG/ML SYR/VIAL IV PRN (11:15)
[2025-02-08] MEDS: KETOROLAC TROMETH 30 MG/ML 1ML VIAL IV ONE (11:15)
[2025-02-08] MEDS: BUPIVACAINE 0.5% INJ 50ML VIAL IJ ONE (11:33)
--- NOTE | 2025-02-08 11:39 | DVHOP2 ---
Operative Report - 2 Report Details Date: 02/08/25 Preop Diagnosis: 1. Left foot osteomyelitis 2. Left foot abscess 3. Left foot cellulitis 4. Left foot diabetic ulcer Postop Diagnosis: Same as preop Surgeon: Yung Diaz MD Anesthesiologist: See anesthesia Anesthesia: Mac Consent: The patient was informed of the risks and benefits of the procedure. These include but are not limited to complications of anesthesia, postoperative infection, incomplete relief of symptoms, recurrence of symptoms, damage to blood vessels, nerves and tendons, deep venous thrombosis, pulmonary embolism and possible need for repeat surgery in the future. Complications: None Estimated Blood Loss: Minimal Fluids: See anesthesia Findings: Consistent with the diagnosis Indications for Surgery: Worsening left foot wound Name of Procedure Performed 1. Left foot I&D to bone (20975) 2. Left foot bone biopsy second metatarsal () Procedure Details Procedure Details: PRE-PROCEDURE INFORMATION: In the pre-op holding area, the extremity to be operated on was clearly marked and the patient verified correct laterality of the marking. The patient was transferred to the OR table and placed in a supine position. A timeout was performed in which identification of the correct patient, procedure, location, and materials was done. The left foot and leg were prepped and draped in normal sterile fashion. DESCRIPTION OF PROCEDURE: Attention was directed to the left where area of fluctuance was noted. An incision was made over this area and was deepened through blunt dissection. The incision was deepened to the level of abscess and bone. Care was taken to the dissection to avoid any neurovascular and tendinous structures. The incision was deepened to the bone, and the abscess appeared to be purulent fluid consistent with pus. The cortices of the bone was then removed with rongeur an all necrotic tissue. After the abscess was drained, the area was irrigated with 3 L normal saline using cysto tubing. Deep cultures were then obtained from the wound. The area was then inspected and any areas of tracking, especially along the tendons were also drained. The wound was packed with Betadine-soaked gauze and we will need to be closed at a later date. POSTOPERATIVE INFORMATION: The patient tolerated the above noted procedure and anesthesia well and was transferred to the PACU with vital signs stable, and vascular status intact with capillary refill intact to all digits. Patient will return to the floor continue IV antibiotics. Deep cultures were taken. Bone biopsy was taken. Patient will return to the OR on Saturday for possible closure. Specimen: Left second metatarsal Condition Good Disposition Still a Patient YUNG DIAZ DPM Feb 08, 2025 11:39
--- NOTE | 2025-02-08 11:55 | DVHPNRES ---
Progress Note Date Seen: Feb 08, 2025 Resident Creating Document: ZACHARIAH GREWAL RESIDENT Medical Necessity Reason Pt with a Central, PICC or Fol: No Subjective Review of Systems The patient reports that has been having a wound/ulcer in the plantar aspect of the left foot just inferior to the 1st metatarsal bone that has been going on for months. Patient underwent for for surgery: Left foot I&D to bone, Left foot bone biopsy second metatarsal. Objective vital signs Vital Sign Date Time Temp Pulse Resp B/P (MAP) Pulse Ox O2 Delivery O2 Flow Rate FiO2 02/08/25 09:14 98.4 76 18 123/65 (84) 97 98.4 02/08/25 07:44 Room Air* 0 21 Total Intake and Output 02/07/25 02/07/25 02/08/25 14:59 22:59 06:59 Intake Total 50 ml 860 ml 700 ml Balance 50 ml 860 ml 700 ml medications Current Medications Medications Dose Ordered Sig/Carlos Route Start Time Stop Time Status Last Admin Dose Admin Acetaminophen 650 mg Q6HP PRN PO 02/05/25 22:15 Acetaminophen/ Hydrocodone Bitart 1 tab Q4HP PRN PO 02/05/25 22:15 02/07/25 21:54 1 TAB Vancomycin HCl 0 ml @ 0 mls/hr UD IV 02/05/25 22:15 Cefepime HCl 50 ml @ 12.5 mls/hr Q12HR IV 02/05/25 22:15 02/08/25 09:45 12.5 MLS/HR Insulin Glargine 25 units QPM SC 02/05/25 23:30 02/06/25 17:33 25 UNITS Diagnostic Test (Pha) 1 strip ACHS 02/06/25 07:00 02/08/25 06:03 1 STRIP Insulin Human Regular ACHS SC 02/06/25 07:00 02/08/25 06:05 2 UNITS Dextrose 50 ml UD PRN IV 02/05/25 23:30 Vancomycin HCl 300 ml @ 200 mls/hr Q12H IV 02/07/25 14:00 02/08/25 02:26 200 MLS/HR Lisinopril 5 mg DAILY PO 02/08/25 10:00 Atorvastatin Calcium 40 mg HS PO 02/07/25 22:00 02/07/25 21:53 40 MG Hydromorphone HCl 0.5 mg Q10M PRN IV 02/08/25 11:15 02/08/25 11:56 Morphine Sulfate 2 mg Q4H PRN IV 02/08/25 11:15 02/08/25 15:16 Morphine Sulfate 1 mg Q30M PRN IV 02/08/25 11:15 02/08/25 13:16 Examination General: Over Weight, afebrile, palor, mucosae are moist Cardiovascular: Regular S1 and S2. No murmurs, gallops or rubs. No JVD elevation. No pedal edema Respiratory: Normal B/L air entry on room air. Clear lung sounds on auscultation Abdomen: Soft, nontender, nondistended, normoactive bowel sounds, no rebound tenderness, no organomegaly, no masses Genitourinary: Deferred MSK/skin: Mobilizes 4 limbs. Skin is dry and warm. Left food dressing removed, showing base of the sole proximal to 2nd MTP shows draining deep ulcer with purulent material, surrounding superficial edema, and numbness. First toe amputation seen. Left foot has a dry wound on 1st big toe. Neurological: No motor, no sensitive deficits, normal speech. Pupils are isocoric and reactive. Psych/Mental Status: A/Ox3 laboratory and microbiology Laboratory Tests 02/08/25 07:09 Test 02/08/25 07:09 Range/Units Serum Glucose 153 #H 74-106 mg/dL Microbiology Date/Time Source Procedure Growth Status 02/07/25 10:09 Blood Blood Culture - Preliminary NO GROWTH AFTER 24 HOURS OF INCUBATION. Resulted 02/06/25 10:55 Foot Left Gram Stain - Final Resulted 02/06/25 10:55 Foot Left Wound Culture - Preliminary Resulted Problem List/Assessment/Plan Problem List/Assessment/Plan # sepsis POA due to osteomyelitis # Left foot osteomyelitis # Left foot abscess S/P Left foot I&D to bone # Left foot cellulitis # Left foot diabetic ulcer # History of left big toe amputation -initial CT scan of the left foot showed no fracture, dislocation or focal osseous lesions but were not able to rule out completely osteomyelitis - MRI of the left foot: Diffuse subcutaneous soft-tissue edema and swelling suspicious for cellulitis. This is most severe around the 2nd MTP. There is probable fistulous tract and ulceration involving the inferior aspect of the foot at the level of the distal 2nd metatarsal. 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 Lantus 25 units q.p.m. plus mild sliding scale insulin -monitor blood glucose closely Uncontrolled hypertension Lisinopril 10 mg daily ROSENDA likely vasomotor mediated Creatinine 1.38 on arrival, downtrending Anemia, likely normocytic Monitor Hyponatremia, likely chronic Monitor Acute cystitis On IV antibiotics Wean bacterial culture pending Dyslipidemia Atorvastatin 40 mg daily. Amphetamine use dependence Counseled regarding cessation for more than 20 minutes. Goal of care discussed with patient for 23 minute: Full code Plan discussed with Dr. Webster Plan discussed with: Patient My Orders My Orders Orders - ZACHARIAH GREWAL RESIDENT Procedure Category Date Status Time Bilat Low Ext Art US 02/08/25 Logged Duplex 10:26 Dietary Evaluation Review Recommendations by RD: Dietary education by RD, Protein Supplementation Comments: 1) Change diet from 45g CCHO to 60g CCHO. Patient is 76". Encourage optimal PO intake 2) Initiate Brendan @ 1 pk bid 3) Initiate MVI @ 1 tb qd 4) Initiate zinc sulfate @ 220 mg for 10 days 5) Refer to outpatient RD/[facility] for diabetes education 6) Follow-up with podiatry 7) Continue to monitor I&O, labs, and skin integrity Expected Outcomes/Goals: 1) appetite and labs to improve 2) wound to improve 3) f/u in 3-5 days Date of Service: Feb 08, 2025 Billing Provider: NICOLE COLLAZO MD Common Visit Codes: [id number] INP/OBS CARE(HIGH) ZACHARIAH GREWAL RESIDENT Feb 08, 2025 11:55 NICOLE COLLAZO MD Feb 15, 2025 10:16
--- NOTE | 2025-02-08 14:25 | DVH ---
Indication: R/O PAD Technique: Real- time ultrasound images of the bilateral lower extremity with grayscale, color, and spectral wave Doppler. Comparison: None Findings: Biphasic/ triphasic waveforms within the bilateral lower extremity. Scattered atherosclerotic calcifi cation disease. Peak systolic velocities are as follows (in cm/s): Right: Common femoral artery: 116 Profunda femoris: 71 Proximal superficial femoral: 139 Mid superficial femoral artery: 135 Distal superficial femoral artery: 87 Popliteal artery: 72 Posterior tibial artery: 35 Dorsalis pedis artery: 100 Left: Common femoral artery: 157 Profunda femoris: 60 Proximal superficial femoral: 144 Mid superficial femoral artery: 101 Distal superficial femoral artery: 155 Popliteal artery: 119 Posterior tibial artery: 65 Dorsalis pedis artery: 92 Impression: Atherosclerotic calcification disease but no sonographic evidence for hemodynamically significant zac nosis.
[2025-02-08] MEDS: VANCOMYCIN 1GM/200ML PM 200 ML IV SCH (15:42)
[2025-02-09] VITALS (8 sets, daily range): BP systolic 99–175; BP diastolic 49–93; PULSE 70–80; RESP 17–21; TEMP 96–98.5; O2SAT 96–99
[2025-02-09 07:19] LABS: Basophils # (auto) 0.1 10 ^3/uL (0-0.2); Basophils % (auto) 0.7 % (0.0-2.0); Eosinophils # (auto) 0.4 10 ^3/uL (0-0.8); Eosinophils % (auto) 4.9 % (0.0-7.0); Hematocrit 33.6 % (41.0-53.0); Hemoglobin 11.6 g/dL (13.5-17.5); Lymphocytes % (auto) 26.5 % (10.0-50.0); Mean Corpuscular Hemoglobin 28.6 pg (28.0-32.0); Mean Corpuscular Hgb Conc. 34.5 g/dL (32.0-36.0); Mean Corpuscular Volume 82.9 fL (80.0-100.0); Monocytes # (auto) 0.6 10 ^3/uL (0-1.3); Monocytes % (auto) 7.5 % (0.0-12.0); Neutrophils # (auto) 4.5 10 ^3/uL (1.6-8.6); Neutrophils % (auto) 60.4 % (37.0-80.0); Nucleated Red Blood Cells % 0.2 %; Platelet Count (auto) 389 10^3/uL (140-450); Red Blood Cells 4.05 10^6/uL (4.5-5.90); Red Cell Distribution Width 14.7 % (11.8-14.3); White Blood Cell 7.4 10^3/uL (4.4-10.8)
--- NOTE | 2025-02-09 07:26 | ECG ---
[facility] Test Date: 2025-02-08 Test Time: 08:01:53 Pat Name: RENETTA GROSSMAN Department: Room: 0281 A Gender: M Piece Hand: MARINA GONZALEZ : 1965 Requested By: YUNG DIAZ Order Number: [id number] Reading MD: Eddie Chin Measurements Intervals [place] Rate: 75 P: 78 [place]: 219 QRS: 26 QRSD: 107 T: 48 QT: 415 QTc: 464 Interpretive Statements Sinus rhythm Prolonged [place] interval Abnormal R-wave progression, early transition Electronically Signed On 02-09-2025 17:23:20 PDT by Eddie Chin Please click the below link to view image of tracing.
[2025-02-09 07:31] LABS: Anion Gap 12 (5-15); Carbon Dioxide 24 mmol/L (20-31); Chloride 100 mmol/L (98-107); Potassium 4.1 mmol/L (3.5-5.1); Sodium 136 mmol/L (136-145)
[2025-02-09 07:33] LABS: Calcium 9.1 mg/dL (8.7-10.4)
[2025-02-09 07:37] LABS: BUN/Creatinine Ratio 14.7 (10.0-20.0); Blood Urea Nitrogen 16 mg/dL (9-23)
[2025-02-09 07:40] LABS: Glucose 153 mg/dL (74-106)
[2025-02-09] MEDS: VANCOMYCIN 1GM/200ML PM 200 ML IV SCH (11:22)
--- NOTE | 2025-02-09 11:39 | DVHPNRES ---
Progress Note Date Seen: Feb 09, 2025 Resident Creating Document: ZACHARIAH GREWAL RESIDENT Medical Necessity Reason Pt with a Central, PICC or Fol: No Subjective Review of Systems wound/ulcer in the plantar aspect of the left foot just inferior to the 1st metatarsal bone that has been going on for months. Patient underwent for for surgery on 02/08/25: Left foot I&D to bone, Left foot bone biopsy second metatarsal. pt will go to OR for wound closer tomorrow. NPO at midnight Objective vital signs Vital Sign Date Time Temp Pulse Resp B/P (MAP) Pulse Ox O2 Delivery O2 Flow Rate FiO2 02/09/25 11:26 168/84 02/09/25 08:21 98.0 80 17 97 98.0 02/08/25 20:00 Room Air* 0 21 Total Intake and Output 02/08/25 02/08/25 02/09/25 15:00 23:00 07:00 Intake Total 100 ml 350 ml 600 ml Balance 100 ml 350 ml 600 ml medications Current Medications Medications Dose Ordered Sig/Carlos Route Start Time Stop Time Status Last Admin Dose Admin Acetaminophen 650 mg Q6HP PRN PO 02/05/25 22:15 Acetaminophen/ Hydrocodone Bitart 1 tab Q4HP PRN PO 02/05/25 22:15 02/08/25 20:45 1 TAB Vancomycin HCl 0 ml @ 0 mls/hr UD IV 02/05/25 22:15 Cefepime HCl 50 ml @ 12.5 mls/hr Q12HR IV 02/05/25 22:15 02/09/25 11:22 12.5 MLS/HR Insulin Glargine 25 units QPM SC 02/05/25 23:30 02/08/25 17:17 25 UNITS Diagnostic Test (Pha) 1 strip ACHS 02/06/25 07:00 02/09/25 06:25 1 STRIP Insulin Human Regular ACHS SC 02/06/25 07:00 02/09/25 06:26 3 UNITS Dextrose 50 ml UD PRN IV 02/05/25 23:30 Lisinopril 5 mg DAILY PO 02/08/25 10:00 02/09/25 11:26 5 MG Atorvastatin Calcium 40 mg HS PO 02/07/25 22:00 02/08/25 21:41 40 MG Vancomycin HCl 200 ml @ 200 mls/hr Q12H IV 02/09/25 11:00 02/09/25 11:22 200 MLS/HR Examination General: Over Weight, afebrile, palor, mucosae are moist Cardiovascular: Regular S1 and S2. No murmurs, gallops or rubs. No JVD elevation. No pedal edema Respiratory: Normal B/L air entry on room air. Clear lung sounds on auscultation Abdomen: Soft, nontender, nondistended, normoactive bowel sounds, no rebound tenderness, no organomegaly, no masses Genitourinary: Deferred MSK/skin: Mobilizes 4 limbs. Skin is dry and warm. Left food dressing removed, showing base of the sole proximal to 2nd MTP shows draining deep ulcer with purulent material, surrounding superficial edema, and numbness. First toe amputation seen. Left foot has a dry wound on 1st big toe. Neurological: No motor, no sensitive deficits, normal speech. Pupils are isocoric and reactive. Psych/Mental Status: A/Ox3 laboratory and microbiology Laboratory Tests 02/09/25 04:01 Test 02/09/25 04:01 Range/Units Serum Glucose 153 H 74-106 mg/dL Microbiology Date/Time Source Procedure Growth Status 02/08/25 11:30 Foot Left Gram Stain Pending Resulted 02/08/25 11:30 Foot Left Anaerobic Culture - Preliminary Resulted 02/08/25 11:30 Foot Left Aerobic Culture Pending Resulted 02/07/25 10:09 Blood Blood Culture - Preliminary NO GROWTH AFTER 48 HOURS OF INCUBATION. Resulted Problem List/Assessment/Plan Problem List/Assessment/Plan # sepsis POA due to osteomyelitis # Left foot osteomyelitis # Left foot abscess S/P Left foot I&D to bone # Left foot cellulitis # Left foot diabetic ulcer # History of left big toe amputation -initial CT scan of the left foot showed no fracture, dislocation or focal osseous lesions but were not able to rule out completely osteomyelitis - MRI of the left foot: Diffuse subcutaneous soft-tissue edema and swelling suspicious for cellulitis. This is most severe around the 2nd MTP. There is probable fistulous tract and ulceration involving the inferior aspect of the foot at the level of the distal 2nd metatarsal. 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 Lantus 25 units q.p.m. plus mild sliding scale insulin -monitor blood glucose closely Uncontrolled hypertension Lisinopril 10 mg daily ROSENDA likely vasomotor mediated Creatinine 1.38 on arrival, downtrending Anemia, likely normocytic Monitor Hyponatremia, likely chronic Monitor Acute cystitis On IV antibiotics Wound bacterial culture pending Dyslipidemia Atorvastatin 40 mg daily. Amphetamine use dependence Counseled regarding cessation for more than 20 minutes. Patient underwent for for surgery on 02/08/25: Left foot I&D to bone, Left foot bone biopsy second metatarsal. pt will go to OR for wound closer tomorrow. NPO at midnight Goal of care discussed with patient for 19 minute: Full code Plan discussed with Dr. Webster Plan discussed with: Patient Dietary Evaluation Review Recommendations by RD: Dietary education by RD, Protein Supplementation Comments: 1) Change diet from 45g CCHO to 60g CCHO. Patient is 76". Encourage optimal PO intake 2) Initiate Brendan @ 1 pk bid 3) Initiate MVI @ 1 tb qd 4) Initiate zinc sulfate @ 220 mg for 10 days 5) Refer to outpatient RD/[facility] for diabetes education 6) Follow-up with podiatry 7) Continue to monitor I&O, labs, and skin integrity Expected Outcomes/Goals: 1) appetite and labs to improve 2) wound to improve 3) f/u in 3-5 days Date of Service: Feb 09, 2025 Billing Provider: NICOLE COLLAZO MD Common Visit Codes: [id number] INP/OBS CARE(HIGH) ZACHARIAH GREWAL RESIDENT Feb 09, 2025 11:39 NICOLE COLLAZO MD Feb 15, 2025 10:18
[2025-02-09] MEDS ORDERED: hydrALAZINE HCL 20 MG/ML VL IV PRN (13:30)
--- NOTE | 2025-02-09 13:55 | DVHPN2 ---
Subjective This is a 60-year-old male with past medical history of type 2 diabetes mellitus (noncompliant with any medication and states he does not take any medication at home), the patient presented to the ED with chief complaint of left foot wound. The patient reports that has been having a wound/ulcer in the plantar aspect of the left foot just inferior to the 1st metatarsal bone that has been going on for months. The patient states that yesterday for coming to the ED, he was in psych the [place] after that he noticed it that the wound got painful and started to slightly bleed and have a fool smelling. The patient reports that one year ago he got big toe amputation of the left foot due to a diabetic wound ulcer that was not healing and took IV antibiotics for several weeks. The patient denies fever, chills, lower extremity swelling, chest pain, shortness of breath or any additional symptoms. Upon admission, WBC was slightly elevated, BUN and creatinine were 14 and 1.38 respectively and blood sugar was elevated at 380. Initial CT scan of the left foot showed no fracture, dislocation or focal osseous lesions but was not able to rule out completely osteomyelitis. We will start the patient on IV antibiotics, perform an MRI of the left foot, consult surveyor rod helper and admit the patient for further assessment and management. Changes from previous H/P or p: No Changes Eyes: No Pain, No Vision change, No Conjunctivae inflammation, No Eyelid inflammation, No Other, No Redness ENT: No Ear pain, No Ear discharge, No Nose pain, No Nose discharge, No Nose congestion, No Mouth pain, No Mouth swelling, No Throat pain, No Throat swelling, No Other Cardiovascular: No Chest Pain, No Palpitations, No Orthopnea, No Paroxysmal Noc. Dyspnea, No Edema, No Lt Headedness, No Other Respiratory: No Cough, No Dry, No Shortness of breath, No SOB with excertion, No Wheezing, No Hemoptysis, No Pleuritic Pain, No Sputum, No Other Gastrointestinal: No Nausea, No Vomiting, No Abdominal Pain, No Diarrhea, No Constipation, No Melena, No Hematochezia, No Other Genitourinary: No Dysuria, No Frequency, No Incontinence, No Hematuria, No Retention, No Other Musculoskeletal: No other, No neck pain, No shoulder pain, No arm pain, No back pain, No hand pain, No leg pain; foot pain (Left foot pain at the plantar aspect just below the 1st metatarsal joint) Skin: No Rash; Lesions (Wound/ulcer in the plantar aspect of the left foot, with full smelling); No Jaundice, No Bruising, No Other Objective Vitals Vital Signs Date Time Temp Pulse Resp B/P (MAP) Pulse Ox O2 Delivery O2 Flow Rate FiO2 02/09/25 12:39 96.0 70 21 175/93 (120) 99 96.0 02/08/25 20:00 Room Air* 0 21 Intake/Output Intake and Output 02/09/25 07:00 Intake Total 1050 ml Balance 1050 ml Intake Oral 900 ml IV Total 150 ml # Voids 5 Exam Dermatological: Skin is dry with mild erythema and some maceration around the wound site No gross deformities noted Mild non-pitting edema present bilaterally Left plantar foot wound with fibrosis and purulent drainage Vascular: Dorsalis pedis and posterior tibial pulses are 1+ bilaterally Capillary refill is under 2 seconds Skin temperature is warm bilaterally Neurologic: Protective sensation is absent on the plantar forefoot bilaterally Monofilament testing reveals decreased sensation in multiple plantar sites Musculoskeletal: Range of motion at the ankle and MTP joints is within normal limits. Strength is 5/5 in all tested muscle groups. Gait is antalgic due to offloading of the affected limb. Medications Current Medications Medications Dose Ordered Sig/Carlos Route Start Time Stop Time Status Last Admin Dose Admin Acetaminophen 650 mg Q6HP PRN PO 02/05/25 22:15 Acetaminophen/ Hydrocodone Bitart 1 tab Q4HP PRN PO 02/05/25 22:15 02/09/25 13:25 1 TAB Vancomycin HCl 0 ml @ 0 mls/hr UD IV 02/05/25 22:15 Cefepime HCl 50 ml @ 12.5 mls/hr Q12HR IV 02/05/25 22:15 02/09/25 11:22 12.5 MLS/HR Insulin Glargine 25 units QPM SC 02/05/25 23:30 02/08/25 17:17 25 UNITS Diagnostic Test (Pha) 1 strip ACHS 02/06/25 07:00 02/09/25 11:41 1 STRIP Insulin Human Regular ACHS SC 02/06/25 07:00 02/09/25 13:08 3 UNITS Dextrose 50 ml UD PRN IV 02/05/25 23:30 Lisinopril 5 mg DAILY PO 02/08/25 10:00 02/09/25 11:26 5 MG Atorvastatin Calcium 40 mg HS PO 02/07/25 22:00 02/08/25 21:41 40 MG Vancomycin HCl 200 ml @ 200 mls/hr Q12H IV 02/09/25 11:00 02/09/25 11:22 200 MLS/HR Hydralazine HCl 10 mg Q6HP PRN IV 02/09/25 13:30 Laboratory Results Laboratory Tests 02/09/25 04:01 Chemistry Test 02/09/25 04:01 Calcium Level 9.1 mg/dL (8.7-10.4) Urinalysis Test 02/06/25 10:55 Urine Color Light-yellow (Yellow) Urine Clarity Turbid (Clear) H Urine pH 5.5 (5.0-9.0) Urine Specific [place] 1.029 (1.001-1.035) Urine Protein 1+ (Negative) H Urine Ketones Negative (Negative) Urine Blood 1+ /uL (Negative) H Urine Nitrite Negative (Negative) Urine Bilirubin Negative (Negative) Urine Urobilinogen Normal mg/dL (Negative) Urine Leukocyte Esterase 3+ /uL (Negative) Urine RBC 7 /hpf (0 - 3) Urine WBC Clumps Present /hpf (None Seen) Urine Microscopic WBC 98 /HPF (0-3) H Urine Squamous Epithelial Cells Few /hpf (<5) Urine Bacteria Few /hpf (None Seen) H Urine Hyaline Casts Few /lpf (0 - 2) Urine Mucus Few (None Seen) Urine Creatinine 100.34 mg/dL (30.0-125.0) Urine Protein/Creatinine Ratio 0.93 Urine Sodium 64 mmol/L (40-220) Urine Glucose 4+ mg/dL (Normal) H Urine Total Protein 93.7 mg/dL (1-14) H Microbiology Microbiology Date/Time Source Procedure Growth Status 02/08/25 11:30 Foot Left Gram Stain Pending Resulted 02/08/25 11:30 Foot Left Anaerobic Culture - Preliminary Resulted 02/08/25 11:30 Foot Left Aerobic Culture - Preliminary Resulted 02/07/25 10:09 Blood Blood Culture - Preliminary NO GROWTH AFTER 48 HOURS OF INCUBATION. Resulted Assessment/Plan Plan discussed with: Patient My Orders ASSESSMENT: Patient is a 60 year old seen on the floor follow up s/p foot I&D PLAN: - The patients chart was reviewed, clinical findings were discussed with the patient, the etiologies of the conditions were discussed in detail, and a treatment plan was agreed to at this time, with both oral and written instructions provided. - reviewed advanced imaging - reviewed all of the labs and pathology - discussed plan is to perform a subsequent incision and drainage and closure - patient will be NPO at midnight - take him to the OR tomorrow - it was determined that multiple I&Ds will be necessary to save the limb - evaluted patients both feet and there is excessive dryness and onychomycosis that patient would benefit from routine foot care as an outpatient - can weightbear as tolerated in postoperative shoe All questions were answered and concerns addressed to the patient's satisfaction. The patient was given the phone number to the clinic and was told how to make contact with the clinic should any concerns or questions arise. Patient understands that if any questions or concerns arise prior to the next appointment, we should be contacted immediately. FOLLOW-UP: Continue to follow while inpatient Problem List: (1) Uncontrolled diabetes mellitus (2) Cellulitis of left foot Date of Service: Feb 09, 2025 Billing Provider: YUNG DIAZ DPM Common Visit Codes: [id number] INP/OBS CARE(HIGH) YUNG DIAZ DPM Feb 09, 2025 13:55
[2025-02-09] MEDS: LISINOPRIL 20 MG TAB PO ONE (16:22)
[2025-02-10] VITALS (8 sets, daily range): BP systolic 119–168; BP diastolic 69–93; PULSE 70–89; RESP 13–20; TEMP 97.6–98.7; O2SAT 94–98
--- NOTE | 2025-02-10 09:19 | DVHPN2 ---
Subjective This is a 60-year-old male with past medical history of type 2 diabetes mellitus (noncompliant with any medication and states he does not take any medication at home), the patient presented to the ED with chief complaint of left foot wound. The patient reports that has been having a wound/ulcer in the plantar aspect of the left foot just inferior to the 1st metatarsal bone that has been going on for months. The patient states that yesterday for coming to the ED, he was in psych the [facility] after that he noticed it that the wound got painful and started to slightly bleed and have a fool smelling. The patient reports that one year ago he got big toe amputation of the left foot due to a diabetic wound ulcer that was not healing and took IV antibiotics for several weeks. The patient denies fever, chills, lower extremity swelling, chest pain, shortness of breath or any additional symptoms. Upon admission, WBC was slightly elevated, BUN and creatinine were 14 and 1.38 respectively and blood sugar was elevated at 380. Initial CT scan of the left foot showed no fracture, dislocation or focal osseous lesions but was not able to rule out completely osteomyelitis. We will start the patient on IV antibiotics, perform an MRI of the left foot, consult head of academic technology and admit the patient for further assessment and management. Changes from previous H/P or p: No Changes Eyes: No Pain, No Vision change, No Conjunctivae inflammation, No Eyelid inflammation, No Other, No Redness ENT: No Ear pain, No Ear discharge, No Nose pain, No Nose discharge, No Nose congestion, No Mouth pain, No Mouth swelling, No Throat pain, No Throat swelling, No Other Cardiovascular: No Chest Pain, No Palpitations, No Orthopnea, No Paroxysmal Noc. Dyspnea, No Edema, No Lt Headedness, No Other Respiratory: No Cough, No Dry, No Shortness of breath, No SOB with excertion, No Wheezing, No Hemoptysis, No Pleuritic Pain, No Sputum, No Other Gastrointestinal: No Nausea, No Vomiting, No Abdominal Pain, No Diarrhea, No Constipation, No Melena, No Hematochezia, No Other Genitourinary: No Dysuria, No Frequency, No Incontinence, No Hematuria, No Retention, No Other Musculoskeletal: No other, No neck pain, No shoulder pain, No arm pain, No back pain, No hand pain, No leg pain; foot pain (Left foot pain at the plantar aspect just below the 1st metatarsal joint) Skin: No Rash; Lesions (Wound/ulcer in the plantar aspect of the left foot, with full smelling); No Jaundice, No Bruising, No Other Objective Vitals Vital Signs Date Time Temp Pulse Resp B/P (MAP) Pulse Ox O2 Delivery O2 Flow Rate FiO2 02/10/25 08:54 98.7 89 16 129/79 (96) 98 98.7 02/10/25 08:03 Room Air* 0 21 Intake/Output Intake and Output 02/10/25 07:00 Intake Total 1640 ml Balance 1640 ml Intake Oral 1440 ml IV Total 200 ml # Voids 5 Exam Dermatological: Skin is dry with mild erythema and some maceration around the wound site No gross deformities noted Mild non-pitting edema present bilaterally Left plantar foot wound with fibrosis and purulent drainage Vascular: Dorsalis pedis and posterior tibial pulses are 1+ bilaterally Capillary refill is under 2 seconds Skin temperature is warm bilaterally Neurologic: Protective sensation is absent on the plantar forefoot bilaterally Monofilament testing reveals decreased sensation in multiple plantar sites Musculoskeletal: Range of motion at the ankle and MTP joints is within normal limits. Strength is 5/5 in all tested muscle groups. Gait is antalgic due to offloading of the affected limb. Medications Current Medications Medications Dose Ordered Sig/Carlos Route Start Time Stop Time Status Last Admin Dose Admin Acetaminophen 650 mg Q6HP PRN PO 02/05/25 22:15 Acetaminophen/ Hydrocodone Bitart 1 tab Q4HP PRN PO 02/05/25 22:15 02/09/25 21:48 1 TAB Vancomycin HCl 0 ml @ 0 mls/hr UD IV 02/05/25 22:15 Cefepime HCl 50 ml @ 12.5 mls/hr Q12HR IV 02/05/25 22:15 02/09/25 23:10 12.5 MLS/HR Insulin Glargine 25 units QPM SC 02/05/25 23:30 02/09/25 18:31 25 UNITS Diagnostic Test (Pha) 1 strip ACHS 02/06/25 07:00 02/10/25 06:23 1 STRIP Insulin Human Regular ACHS SC 02/06/25 07:00 02/10/25 06:25 2 UNITS Dextrose 50 ml UD PRN IV 02/05/25 23:30 Lisinopril 5 mg DAILY PO 02/08/25 10:00 02/09/25 11:26 5 MG Atorvastatin Calcium 40 mg HS PO 02/07/25 22:00 02/09/25 21:42 40 MG Vancomycin HCl 200 ml @ 200 mls/hr Q12H IV 02/09/25 11:00 02/09/25 22:00 200 MLS/HR Hydralazine HCl 10 mg Q6HP PRN IV 02/09/25 13:30 Laboratory Results Laboratory Tests 02/09/25 04:01 02/10/25 04:36 Urinalysis Test 02/06/25 10:55 Urine Color Light-yellow (Yellow) Urine Clarity Turbid (Clear) H Urine pH 5.5 (5.0-9.0) Urine Specific Orange 1.029 (1.001-1.035) Urine Protein 1+ (Negative) H Urine Ketones Negative (Negative) Urine Blood 1+ /uL (Negative) H Urine Nitrite Negative (Negative) Urine Bilirubin Negative (Negative) Urine Urobilinogen Normal mg/dL (Negative) Urine Leukocyte Esterase 3+ /uL (Negative) Urine RBC 7 /hpf (0 - 3) Urine WBC Clumps Present /hpf (None Seen) Urine Microscopic WBC 98 /HPF (0-3) H Urine Squamous Epithelial Cells Few /hpf (<5) Urine Bacteria Few /hpf (None Seen) H Urine Hyaline Casts Few /lpf (0 - 2) Urine Mucus Few (None Seen) Urine Creatinine 100.34 mg/dL (30.0-125.0) Urine Protein/Creatinine Ratio 0.93 Urine Sodium 64 mmol/L (40-220) Urine Glucose 4+ mg/dL (Normal) H Urine Total Protein 93.7 mg/dL (1-14) H Microbiology Microbiology Date/Time Source Procedure Growth Status 02/08/25 11:30 Foot Left Gram Stain - Final Resulted 02/08/25 11:30 Foot Left Anaerobic Culture - Preliminary Resulted 02/08/25 11:30 Foot Left Aerobic Culture - Preliminary Resulted 02/07/25 10:09 Blood Blood Culture - Preliminary NO GROWTH AFTER 48 HOURS OF INCUBATION. Resulted Assessment/Plan Assessment/Plan ASSESSMENT: Patient is a 60 year old seen on the floor follow up s/p foot I&D PLAN: - The patients chart was reviewed, clinical findings were discussed with the patient, the etiologies of the conditions were discussed in detail, and a treatment plan was agreed to at this time, with both oral and written instructions provided. - reviewed advanced imaging - reviewed all of the labs and pathology - discussed plan is to perform a subsequent incision and drainage and closure - patient has been NPO since midnight - take him to the OR today - it was determined that multiple I&Ds will be necessary to save the limb - can weightbear as tolerated in postoperative shoe All questions were answered and concerns addressed to the patient's satisfaction. The patient was given the phone number to the clinic and was told how to make contact with the clinic should any concerns or questions arise. Patient understands that if any questions or concerns arise prior to the next appointment, we should be contacted immediately. FOLLOW-UP: Continue to follow while inpatient Plan discussed with: Patient My Orders Orders - YUNG DIAZ DPM Procedure Category Date Status Time Npo (Nothing By DIET 02/10/25 Transmitted Mouth) Diet Breakfast Obtain Consent For: ORDERS 02/09/25 Transmitted 13:56 Problem List: (1) Uncontrolled diabetes mellitus (2) Cellulitis of left foot Date of Service: Feb 10, 2025 Billing Provider: YUNG DIAZ DPM Common Visit Codes: [id number] INP/OBS CARE(HIGH) YUNG DIAZ DPM Feb 10, 2025 09:19
--- NOTE | 2025-02-10 14:02 | DVHOP2 ---
Operative Report - 2 Report Details Date: 02/10/25 Preop Diagnosis: 1. Left foot osteomyelitis 2. Left foot abscess 3. Left foot cellulitis 4. Left foot diabetic ulcer 5. Left foot hammer toes 2-5 Postop Diagnosis: Same as preop Surgeon: Yung Diaz MD Anesthesiologist: See anesthesia Anesthesia: Mac Consent: The patient was informed of the risks and benefits of the procedure. These include but are not limited to complications of anesthesia, postoperative infection, incomplete relief of symptoms, recurrence of symptoms, damage to blood vessels, nerves and tendons, deep venous thrombosis, pulmonary embolism and possible need for repeat surgery in the future. Complications: None Estimated Blood Loss: Minimal Fluids: See anesthesia Findings: Consistent with diagnosis Indications for Surgery: Worsening foot ulcer Name of Procedure Performed 1. Left foot I&D to bone (73142) 2. Left foot rotation flap for closure (80659) 3. Left foot delayed closure (81189) 4. Left foot flexor tentomy toes 2-5 (84289) x 4 Procedure Details Procedure Details: PRE-PROCEDURE INFORMATION: In the pre-op holding area, the extremity to be operated on was clearly marked and the patient verified correct laterality of the marking. The patient was transferred to the OR table and placed in a supine position. A timeout was performed in which identification of the correct patient, procedure, location, and materials was done. The left foot and leg were prepped and draped in normal sterile fashion. DESCRIPTION OF PROCEDURE: Attention was directed to the left where area of fluctuance was noted. An incision was made over this area and was deepened through blunt dissection. The incision was deepened to the level of abscess and bone. Care was taken to the dissection to avoid any neurovascular and tendinous structures. The incision was deepened to the bone, and the abscess appeared to be purulent fluid consistent with pus. The cortices of the bone was then removed with rongeur an all necrotic tissue. After the abscess was drained, the area was irrigated with 3 L normal saline using cysto tubing. Due to the soft tissue deficit, rotational advancement flap was designed medially to laterally and elevated preserving vascularity. A delayed closure was then performed using 2-0 nylon after was deemed appropriate with no longer concern for infection. Attention was directed to the left 2nd toe, using a 18 gauge needle, the toe was extended and a sweeping motion was made on the FDL. It was noted that the contracture of the digit was then relieved after the flexor tendon was released. Attention was directed to the left 3rd toe, using a 18 gauge needle, the toe was extended and a sweeping motion was made on the FDL. It was noted that the contracture of the digit was then relieved after the flexor tendon was released. Attention was directed to the left 4th toe, using a 18 gauge needle, the toe was extended and a sweeping motion was made on the FDL. It was noted that the contracture of the digit was then relieved after the flexor tendon was released. Attention was directed to the left 5th toe, using a 18 gauge needle, the toe was extended and a sweeping motion was made on the FDL. It was noted that the contracture of the digit was then relieved after the flexor tendon was released. POSTOPERATIVE INFORMATION: The patient tolerated the above noted procedure and anesthesia well and was transferred to the PACU with vital signs stable, and vascular status intact with capillary refill intact to all digits. Patient should continue 6 weeks IV antibiotics. Patient had wound closure today. Patient can weightbear as tolerated in a postoperative shoe. Patient will leave dressing on until he sees me in a proximally 1 week. Condition Good Disposition Still a Patient YUNG DIAZ DPM Feb 10, 2025 14:02
[2025-02-10] MEDS ORDERED: fentaNYL CITRATE 100 MCG/2 ML VL ONE (14:31)
[2025-02-10] MEDS ORDERED: MIDAZOLAM HCL 2MG/2ML 2ml VIAL (1mg/ml) ONE (14:31)
[2025-02-10] MEDS ORDERED: PROPOFOL 10 MG/ML 20 ML IV ONE (14:36)
[2025-02-10] MEDS: VANCOMYCIN HCL 1000 MG VL ONE (14:49)
[2025-02-10] MEDS ORDERED: ONDANSETRON HCL 4 MG/2 ML VIAL IV ONE (15:15)
[2025-02-10] MEDS ORDERED: fentaNYL CITRATE 100 MCG/2 ML VL IV PRN (15:15)
[2025-02-10] MEDS ORDERED: METOCLOPRAMIDE HCL 5MG/ml INJ 2ml VIAL IV ONE (15:15)
--- NOTE | 2025-02-10 17:14 | DVHPNRES ---
Progress Note Date Seen: Feb 10, 2025 Resident Creating Document: ZACHARIAH GREWAL RESIDENT Medical Necessity Reason Pt with a Central, PICC or Fol: No Subjective Review of Systems Pt seen and examined at bedside. Patient underwent for for surgery today. Objective vital signs Vital Sign Date Time Temp Pulse Resp B/P (MAP) Pulse Ox O2 Delivery O2 Flow Rate FiO2 02/10/25 17:00 98.0 75 16 160/93 (115) 98 98.0 02/10/25 08:03 Room Air* 0 21 Total Intake and Output 02/09/25 02/09/25 02/10/25 15:00 23:00 07:00 Intake Total 920 ml 720 ml Balance 920 ml 720 ml medications Current Medications Medications Dose Ordered Sig/Carlos Route Start Time Stop Time Status Last Admin Dose Admin Acetaminophen 650 mg Q6HP PRN PO 02/05/25 22:15 Acetaminophen/ Hydrocodone Bitart 1 tab Q4HP PRN PO 02/05/25 22:15 02/09/25 21:48 1 TAB Vancomycin HCl 0 ml @ 0 mls/hr UD IV 02/05/25 22:15 Cefepime HCl 50 ml @ 12.5 mls/hr Q12HR IV 02/05/25 22:15 02/10/25 10:06 12.5 MLS/HR Insulin Glargine 25 units QPM SC 02/05/25 23:30 02/09/25 18:31 25 UNITS Diagnostic Test (Pha) 1 strip ACHS 02/06/25 07:00 02/10/25 17:01 1 STRIP Insulin Human Regular ACHS SC 02/06/25 07:00 02/10/25 06:25 2 UNITS Dextrose 50 ml UD PRN IV 02/05/25 23:30 Lisinopril 5 mg DAILY PO 02/08/25 10:00 02/10/25 10:06 5 MG Atorvastatin Calcium 40 mg HS PO 02/07/25 22:00 02/09/25 21:42 40 MG Vancomycin HCl 200 ml @ 200 mls/hr Q12H IV 02/09/25 11:00 02/10/25 10:05 200 MLS/HR Hydralazine HCl 10 mg Q6HP PRN IV 02/09/25 13:30 Examination General: Over Weight, afebrile, palor, mucosae are moist Cardiovascular: Regular S1 and S2. No murmurs, gallops or rubs. No JVD elevation. No pedal edema Respiratory: Normal B/L air entry on room air. Clear lung sounds on auscultation Abdomen: Soft, nontender, nondistended, normoactive bowel sounds, no rebound tenderness, no organomegaly, no masses Genitourinary: Deferred MSK/skin: Mobilizes 4 limbs. Skin is dry and warm. Left food dressing removed, showing base of the sole proximal to 2nd MTP shows draining deep ulcer with purulent material, surrounding superficial edema, and numbness. First toe amputation seen. Left foot has a dry wound on 1st big toe. Neurological: No motor, no sensitive deficits, normal speech. Pupils are isocoric and reactive. Psych/Mental Status: A/Ox3 laboratory and microbiology Laboratory Tests 02/10/25 04:36 02/09/25 04:01 Test 02/09/25 04:01 Range/Units Serum Glucose 153 H 74-106 mg/dL Microbiology Date/Time Source Procedure Growth Status 02/08/25 11:30 Foot Left Gram Stain - Final Resulted 02/08/25 11:30 Foot Left Anaerobic Culture - Preliminary Resulted 02/08/25 11:30 Foot Left Aerobic Culture - Preliminary Resulted 02/07/25 10:09 Blood Blood Culture - Preliminary NO GROWTH AFTER 72 HOURS OF INCUBATION. Resulted Problem List/Assessment/Plan Problem List/Assessment/Plan # sepsis POA due to osteomyelitis # Left foot osteomyelitis # Left foot abscess S/P Left foot I&D to bone # Left foot cellulitis # Left foot diabetic ulcer # History of left big toe amputation -initial CT scan of the left foot showed no fracture, dislocation or focal osseous lesions but were not able to rule out completely osteomyelitis - MRI of the left foot: Diffuse subcutaneous soft-tissue edema and swelling suspicious for cellulitis. This is most severe around the 2nd MTP. There is probable fistulous tract and ulceration involving the inferior aspect of the foot at the level of the distal 2nd metatarsal. - -patient states that had amputation of the left great toe one year ago and completed several weeks of IV antibiotic - exposure to dirty water in the [facility] and previous IV antibiotics - continue with maintenance IV fluids at 75 cc/hour - 1 L IV fluid, NS was given -daily wound care and wound dressing -ordered culture of the wound with Gram stain -consulted instructional technology instructor: S/P Left foot I&D to bone, Left foot bone biopsy second metatarsal -Cont. Lantus 25 units q.p.m. plus mild sliding scale insulin -monitor blood glucose closely -Patient underwent for for surgery today Uncontrolled hypertension Lisinopril 10 mg daily ROSENDA likely vasomotor mediated Creatinine 1.38 on arrival, downtrending Anemia, likely normocytic Monitor Hyponatremia, likely chronic Monitor Acute cystitis On IV antibiotics Wound bacterial culture pending Dyslipidemia Atorvastatin 40 mg daily. Amphetamine use dependence Counseled regarding cessation for more than 20 minutes. Patient underwent for for surgery on 02/08/25: Left foot I&D to bone, Left foot bone biopsy second metatarsal. Planed to discharge patient on I/V abx for 6 weeks with home health service but as meth positive so no I/V access at home. Plan discussed with instructional technology instructor. Goal of care discussed with patient for 19 minute: Full code Plan discussed with Dr. Webster Plan discussed with: Patient Dietary Evaluation Review Recommendations by RD: Dietary education by RD, Protein Supplementation Comments: 1) Change diet from 45g CCHO to 60g CCHO. Patient is 76". Encourage optimal PO intake 2) Initiate Brendan @ 1 pk bid 3) Initiate MVI @ 1 tb qd 4) Initiate zinc sulfate @ 220 mg for 10 days 5) Refer to outpatient RD/GONZALOES for diabetes education 6) Follow-up with podiatry 7) Continue to monitor I&O, labs, and skin integrity Expected Outcomes/Goals: 1) appetite and labs to improve 2) wound to improve 3) f/u in 3-5 days Date of Service: Feb 10, 2025 Billing Provider: NICOLE COLLAZO MD Common Visit Codes: [id number] INP/OBS CARE(HIGH) ZACHARIAH GREWAL RESIDENT Feb 10, 2025 17:13 NICOLE COLLAZO MD Feb 15, 2025 10:24
[2025-02-11 01:00] VITALS: BP 167/93; PULSE 91; RESP 20; TEMP 97; O2SAT 96
[2025-02-11 05:05] VITALS: BP 111/75; PULSE 97; RESP 20; TEMP 96.8; O2SAT 97
[2025-02-11 06:37] LABS: Anion Gap 10 (5-15); Carbon Dioxide 26 mmol/L (20-31); Chloride 101 mmol/L (98-107); Potassium 4.1 mmol/L (3.5-5.1); Sodium 137 mmol/L (136-145)
[2025-02-11 06:38] LABS: Calcium 9.6 mg/dL (8.7-10.4)
[2025-02-11 06:43] LABS: Blood Urea Nitrogen 20 mg/dL (9-23)
[2025-02-11 06:45] LABS: Basophils # (auto) 0.1 10 ^3/uL (0-0.2); Basophils % (auto) 0.6 % (0.0-2.0); Eosinophils # (auto) 0.3 10 ^3/uL (0-0.8); Eosinophils % (auto) 3.6 % (0.0-7.0); Hematocrit 34.9 % (41.0-53.0); Hemoglobin 11.8 g/dL (13.5-17.5); Lymphocytes # (auto) 1.4 10 ^3/uL (0.4-5.4); Lymphocytes % (auto) 15.5 % (10.0-50.0); Mean Corpuscular Hemoglobin 27.9 pg (28.0-32.0); Mean Corpuscular Hgb Conc. 33.8 g/dL (32.0-36.0); Mean Corpuscular Volume 82.5 fL (80.0-100.0); Monocytes # (auto) 0.7 10 ^3/uL (0-1.3); Monocytes % (auto) 7.6 % (0.0-12.0); Neutrophils # (auto) 6.7 10 ^3/uL (1.6-8.6); Neutrophils % (auto) 72.7 % (37.0-80.0); Platelet Count (auto) 406 10^3/uL (140-450); Red Blood Cells 4.23 10^6/uL (4.5-5.90); Red Cell Distribution Width 14.4 % (11.8-14.3); White Blood Cell 9.2 10^3/uL (4.4-10.8)
[2025-02-11 06:48] LABS: Glucose 202 mg/dL (74-106)
[2025-02-11 07:56] VITALS: RESP 20
[2025-02-11 08:57] VITALS: BP 155/81; PULSE 79; RESP 16; TEMP 98.6; O2SAT 97
[2025-02-11] MEDS ORDERED: CEFP200T15 PO ×2 (10:00→14:36)
[2025-02-11] MEDS ORDERED: DOXY-346 PO (10:00)
--- NOTE | 2025-02-11 12:09 | DVHDSRES ---
Discharge Summary Date of Admission Resident Creating Document: ZACHARIAH GREWAL RESIDENT Feb 05, 2025 at 22:02 Date of Discharge: Feb 11, 2025 Admitting Diagnosis Osteomyelitis Labs/Diagnostic Data: Laboratory Results Test 02/11/25 11:46 02/11/25 05:29 02/10/25 22:08 02/08/25 07:09 POC Glucose 204 mg/dl (70-106) White Blood Count 9.2 10^3/uL (4.4-10.8) Red Blood Count 4.23 10^6/uL (4.5-5.90) Hemoglobin 11.8 g/dL (13.5-17.5) Hematocrit 34.9 % (41.0-53.0) Mean Corpuscular Volume 82.5 fL (80.0-100.0) Mean Corpuscular Hemoglobin 27.9 pg (28.0-32.0) Mean Corpuscular Hemoglobin Concent 33.8 g/dL (32.0-36.0) Red Cell Distribution Width 14.4 % (11.8-14.3) Platelet Count 406 10^3/uL (140-450) Mean Platelet Volume 7.1 fL (6.9-10.8) Neutrophils (%) (Auto) 72.7 % (37.0-80.0) Lymphocytes (%) (Auto) 15.5 % (10.0-50.0) Monocytes (%) (Auto) 7.6 % (0.0-12.0) Eosinophils (%) (Auto) 3.6 % (0.0-7.0) Basophils (%) (Auto) 0.6 % (0.0-2.0) Neutrophils # (Auto) 6.7 10 ^3/uL (1.6-8.6) Lymphocytes # (Auto) 1.4 10 ^3/uL (0.4-5.4) Monocytes # (Auto) 0.7 10 ^3/uL (0-1.3) Eosinophils # (Auto) 0.3 10 ^3/uL (0-0.8) Basophils # (Auto) 0.1 10 ^3/uL (0-0.2) Nucleated Red Blood Cells 0.0 % Sodium Level 137 mmol/L (136-145) Potassium Level 4.1 mmol/L (3.5-5.1) Chloride Level 101 mmol/L (98-107) Carbon Dioxide Level 26 mmol/L (20-31) Anion Gap 10 (5-15) Blood Urea Nitrogen 20 mg/dL (9-23) Creatinine 1.11 mg/dL (0.700-1.30) Glomerular Filtration Rate Calc 76 mL/min (>90) BUN/Creatinine Ratio 18.0 (10.0-20.0) Serum Glucose 202 mg/dL (74-106) Calcium Level 9.6 mg/dL (8.7-10.4) Vancomycin Level Trough 14.1 ug/mL (5-10) Magnesium Level 2.0 mg/dL (1.6-2.6) Total Bilirubin 0.4 mg/dL (0.2-1.0) Aspartate Amino Transferase (AST) 15 U/L (<34) Alanine Aminotransferase (ALT) 17 U/L (7-40) Alkaline Phosphatase 88 U/L (46-116) Total Protein 6.9 g/dL (5.7-8.2) Albumin 3.8 g/dL (3.2-4.8) Test 02/07/25 10:09 02/07/25 04:59 02/06/25 10:55 02/05/25 20:44 Prothrombin Time 10.5 sec (9.3-11.8) Prothrombin Time INR 0.99 (0.9-1.15) Activated Partial Thromboplast Time 29.1 SEC (24.5-34.5) Direct Bilirubin < 0.1 mg/dL (<0.3) Vitamin B12 Level 352 pg/mL (211-911) Vitamin D 25-Hydroxy 20.3 ng/mL (30.0-100) Thyroid Stimulating Hormone (TSH) 2.41 uIU/mL (0.55-4.78) Random Vancomycin Level 4.9 ug/mL (5-10) Urine Color Light-yellow (Yellow) Urine Clarity Turbid (Clear) Urine pH 5.5 (5.0-9.0) Urine Specific [place] 1.029 (1.001-1.035) Urine Protein 1+ (Negative) Urine Ketones Negative (Negative) Urine Blood 1+ /uL (Negative) Urine Nitrite Negative (Negative) Urine Bilirubin Negative (Negative) Urine Urobilinogen Normal mg/dL (Negative) Urine Leukocyte Esterase 3+ /uL (Negative) Urine RBC 7 /hpf (0 - 3) Urine WBC Clumps Present /hpf (None Seen) Urine Microscopic WBC 98 /HPF (0-3) Urine Squamous Epithelial Cells Few /hpf (<5) Urine Bacteria Few /hpf (None Seen) Urine Hyaline Casts Few /lpf (0 - 2) Urine Mucus Few (None Seen) Urine Creatinine 100.34 mg/dL (30.0-125.0) Urine Protein/Creatinine Ratio 0.93 Urine Sodium 64 mmol/L (40-220) Urine Glucose 4+ mg/dL (Normal) Urine Total Protein 93.7 mg/dL (1-14) Urine Opiates Screen Neg (NEGATIVE) Urine Fentanyl Screen Neg (NEGATIVE) Urine Barbiturates Screen Neg (NEGATIVE) Urine Phencyclidine Screen Neg (NEGATIVE) Urine Amphetamines Screen Pos (NEGATIVE) Urine Benzodiazepines Screen Neg (NEGATIVE) Urine Cocaine Screen Neg (NEGATIVE) Urine Cannabinoids Screen Neg (NEGATIVE) Lactic Acid Level 1.7 mmol/L (0.4-2.0) Test 02/05/25 12:03 Erythrocyte Sedimentation Rate 78 mm/hr (0-20) Hemoglobin A1c 10.7 % A1C (<5.7) Triglycerides Level 130 mg/dL (< 150) Cholesterol Level 188 mg/dL (< 200) LDL Cholesterol 126 mg/dL (< 100) HDL Cholesterol 50 mg/dL (40-59) Other Laboratory Tests 02/11/25 05:29 Brief Hx & Hospital Course: HPI: 60-year-old male with past medical history of type 2 diabetes mellitus (noncompliant with any medication and states he does not take any medication at home), the patient presented to the ED with chief complaint of left foot wound. The patient reports that has been having a wound/ulcer in the plantar aspect of the left foot just inferior to the 1st metatarsal bone that has been going on for months. The patient states that yesterday for coming to the ED, he was in psych the [facility] after that he noticed it that the wound got painful and started to slightly bleed and have a fool smelling. The patient reports that one year ago he got big toe amputation of the left foot due to a diabetic wound ulcer that was not healing and took IV antibiotics for several weeks. The patient denies fever, chills, lower extremity swelling, chest pain, shortness of breath or any additional symptoms. Upon admission, WBC was slightly elevated, BUN and creatinine were 14 and 1.38 respectively and blood sugar was elevated at 380. Initial CT scan of the left foot showed no fracture, dislocation or focal osseous lesions but was not able to rule out completely osteomyelitis. Summary: initial CT scan of the left foot showed no fracture, dislocation or focal osseous lesions but were not able to rule out completely osteomyelitis. MRI of the left foot: Showing Osteomylitis. patient states that had amputation of the left great toe one year ago and completed several weeks of IV antibiotic. Patient underwent for for surgery on 02/08/25: Left foot I&D to bone, Left foot bone biopsy second metatarsal. Planed to discharge patient on I/V abx for 6 weeks with home health service but as meth positive so no I/V access at home. For osteomyelitis IV antibiotics were preferred, recommended to go to SNF for IV antibiotics, but patient refused. To be discharged home with Cefpodoxime Proxetil 200 mg BID X 6 weeks, Doxycycline 100 mg BID X 6 weeks. Strongly recommended to follow up with risk management analyst as scheduled and follow up with PCP in 1-2 weeks. Operations or Procedures Patient: RENETTA GROSSMAN Acct: [id number] : 1965 Loc: [facility] Age/Sex: 60/M Room: [facility] / Bed: A Attending Phy: ZACHARIAH GREWAL RESIDENT OPERATIVE REPORT ADDENDUM Name: RENETTA GROSSMAN Acct: [id number] Addendum: CESAR CHRISTINE DPM on 02/10/25 @ 19:03 1. Left foot I&D to bone (06187) 2. Left foot rotation flap for closure (14619) 3. Left foot delayed closure (86447) 4. Left foot flexor tentomy toes 2-5 (62820) x 4 5. Left second metatarsal partial amputation (51619) 6. Left second metatarsal proximal bone biopsy (83993) Procedure Details: PRE-PROCEDURE INFORMATION: In the pre-op holding area, the extremity to be operated on was clearly marked and the patient verified correct laterality of the marking. The patient was transferred to the OR table and placed in a supine position. A timeout was performed in which identification of the correct patient, procedure, location, and materials was done. The left foot and leg were prepped and draped in normal sterile fashion. DESCRIPTION OF PROCEDURE: Attention was directed to the left where area of fluctuance was noted. An incision was made over this area and was deepened through blunt dissection. The incision was deepened to the level of abscess and bone. Care was taken to the dissection to avoid any neurovascular and tendinous structures. The incision was deepened to the bone, and the abscess appeared to be purulent fluid consistent with pus. The cortices of the bone was then removed with rongeur an all necrotic tissue. After the abscess was drained, the area was irrigated with 3 L normal saline using cysto tubing. Using a #15 blade and a rongeur a partial second ray amputation was made to remove any remaining osteomyelitic bone. The proximal aspect was then sent off to rule out any residual osteotomyelitis. Due to the soft tissue deficit, rotational advancement flap was designed medially to laterally and elevated preserving vascularity. A delayed closure was then performed using 2-0 nylon after was deemed appropriate with no longer concern for infection. Attention was directed to the left 2nd toe, using a 18 gauge needle, the toe was extended and a sweeping motion was made on the FDL. It was noted that the contracture of the digit was then relieved after the flexor tendon was released. Attention was directed to the left 3rd toe, using a 18 gauge needle, the toe was extended and a sweeping motion was made on the FDL. It was noted that the contracture of the digit was then relieved after the flexor tendon was released. Attention was directed to the left 4th toe, using a 18 gauge needle, the toe was extended and a sweeping motion was made on the FDL. It was noted that the contracture of the digit was then relieved after the flexor tendon was released. Attention was directed to the left 5th toe, using a 18 gauge needle, the toe was extended and a sweeping motion was made on the FDL. It was noted that the contracture of the digit was then relieved after the flexor tendon was released. POSTOPERATIVE INFORMATION: The patient tolerated the above noted procedure and anesthesia well and was transferred to the PACU with vital signs stable, and vascular status intact with capillary refill intact to all digits. Patient should continue 6 weeks IV antibiotics. Patient had wound closure today. Patient can weightbear as tolerated in a postoperative shoe. Patient will leave dressing on until he sees me in a proximally 1 week. _ ____ ADDENDUM ELECTRONICALLY SIGNED BY: Operative Report - 2 Report Details Date: 02/10/25 Preop Diagnosis: 1. Left foot osteomyelitis 2. Left foot abscess 3. Left foot cellulitis 4. Left foot diabetic ulcer 5. Left foot hammer toes 2-5 Postop Diagnosis: Same as preop Surgeon: Cesar Christine MD Anesthesiologist: See anesthesia Anesthesia: Mac Consent: The patient was informed of the risks and benefits of the procedure. These include but are not limited to complications of anesthesia, postoperative infection, incomplete relief of symptoms, recurrence of symptoms, damage to blood vessels, nerves and tendons, deep venous thrombosis, pulmonary embolism and possible need for repeat surgery in the future. Complications: None Estimated Blood Loss: Minimal Fluids: See anesthesia Findings: Consistent with diagnosis Indications for Surgery: Worsening foot ulcer Name of Procedure Performed 1. Left foot I&D to bone (38803) 2. Left foot rotation flap for closure (24530) 3. Left foot delayed closure (46153) 4. Left foot flexor tentomy toes 2-5 (91604) x 4 Procedure Details Procedure Details: PRE-PROCEDURE INFORMATION: In the pre-op holding area, the extremity to be operated on was clearly marked and the patient verified correct laterality of the marking. The patient was transferred to the OR table and placed in a supine position. A timeout was performed in which identification of the correct patient, procedure, location, and materials was done. The left foot and leg were prepped and draped in normal sterile fashion. DESCRIPTION OF PROCEDURE: Attention was directed to the left where area of fluctuance was noted. An incision was made over this area and was deepened through blunt dissection. The incision was deepened to the level of abscess and bone. Care was taken to the dissection to avoid any neurovascular and tendinous structures. The incision was deepened to the bone, and the abscess appeared to be purulent fluid consistent with pus. The cortices of the bone was then removed with rongeur an all necrotic tissue. After the abscess was drained, the area was irrigated with 3 L normal saline using cysto tubing. Due to the soft tissue deficit, rotational advancement flap was designed medially to laterally and elevated preserving vascularity. A delayed closure was then performed using 2-0 nylon after was deemed appropriate with no longer concern for infection. Attention was directed to the left 2nd toe, using a 18 gauge needle, the toe was extended and a sweeping motion was made on the FDL. It was noted that the contracture of the digit was then relieved after the flexor tendon was released. Attention was directed to the left 3rd toe, using a 18 gauge needle, the toe was extended and a sweeping motion was made on the FDL. It was noted that the contracture of the digit was then relieved after the flexor tendon was released. Attention was directed to the left 4th toe, using a 18 gauge needle, the toe was extended and a sweeping motion was made on the FDL. It was noted that the contracture of the digit was then relieved after the flexor tendon was released. Attention was directed to the left 5th toe, using a 18 gauge needle, the toe was extended and a sweeping motion was made on the FDL. It was noted that the contracture of the digit was then relieved after the flexor tendon was released. POSTOPERATIVE INFORMATION: The patient tolerated the above noted procedure and anesthesia well and was transferred to the PACU with vital signs stable, and vascular status intact with capillary refill intact to all digits. Patient should continue 6 weeks IV antibiotics. Patient had wound closure today. Patient can weightbear as tolerated in a postoperative shoe. Patient will leave dressing on until he sees me in a proximally 1 week. Condition Good Disposition 2 Still a Patient CESAR CHRISTINE DPM Feb 10, 2025 14:02 DICTATED BY:CESAR CHRISTINE DPM DICTATED DATE/TIME:02/10/25 1402 ELECTRONICALLY SIGNED BY:CESAR CHRISTINE DPM 02/10/25 1502 ELECTRONICALLY CO-SIGNED BY: Condition at Discharge: Good Final Diagnosis/Problems List # sepsis POA due to osteomyelitis # Left foot osteomyelitis # Left foot abscess S/P Left foot I&D to bone # Left foot cellulitis # Left foot diabetic ulcer # History of left big toe amputation Discharge Disposition: Home SNF Discharge Will this Physician continue t: No Discharge Instruct/Medications Diet: Consistent carbohydrate, Cardiac 2g Na,low cholest Activity: No Restrictions, As Tolerated Follow Up/Referral: See Below Medications: See Below Care Plan: For osteomyelitis IV antibiotics were preferred, recommended to go to SNF for IV antibiotics, but patient refused. Cefpodoxime Proxetil 200 mg BID X 6 weeks Doxycycline 100 mg BID X 6 weeks - follow up with risk management analyst as scheduled - follow up with PCP in 1-2 weeks - Cont. wound care Discharge Statement: "Patient was advised to return to the ER or call 911 if any headaches, dizziness, shortness of breath, chest pain, abdominal pain, bleeding, fevers, or worsening of medical condition. Patient was counseled about treatment plan, medications, possible side effects, patientverbalized understanding. All questions were answered to the best of my ability. This discharge took greater then 30 minutes in planning, reviewing documentation, counseling the patient, and discussing with other team members." ASSESSMENT ASSESSMENT Assessment # sepsis POA due to osteomyelitis # Left foot osteomyelitis # Left foot abscess S/P Left foot I&D to bone # Left foot cellulitis # Left foot diabetic ulcer # History of left big toe amputation Date of Service: Feb 11, 2025 Billing Provider: NICOLE COLLAZO MD Common Visit Codes: 85928-SJU/OBS DISCH DAY >30min ZACHARIAH GREWAL RESIDENT Feb 11, 2025 12:09 NICOLE COLLAZO MD Feb 16, 2025 09:40
[2025-02-11 12:46] VITALS: BP 161/67; PULSE 75; RESP 16; TEMP 97.7; O2SAT 98
[2025-02-11] MEDS ORDERED: VANCOMYCIN 1GM/200ML PM 200 ML IV SCH ×2 (13:00)
[2025-02-11 13:54] VITALS: BP 155/81; PULSE 71; RESP 16; TEMP 97.6; O2SAT 95
[2025-02-11] MEDS ORDERED: DOXY1CAP57 PO (14:36)
== END 2025-02-11 16:00 | disposition home or self-care (01) | DRG 710 ==
LOC: ER 10:51 → OVERFLOW 22:02 → WEST WING 02-06 14:48
PROVIDERS: ADMIT Student in an Organized Health Care Education/Training Program; ATTEND Student in an Organized Health Care Education/Training Program
PROC: 0QBP0ZX Excision of Left Metatarsal, Open Approach, Diagnostic (ICD-10-PCS; 2025-02-08)
PROC: 0J9R0ZZ Drainage of Left Foot Subcutaneous Tissue and Fascia, Open Approach (ICD-10-PCS; principal; 2025-02-08 11:21)
PROC: 0JXR0ZZ Transfer Left Foot Subcutaneous Tissue and Fascia, Open Approach (ICD-10-PCS; 2025-02-10)
PROC: 0Y6N0ZB Detachment at Left Foot, Partial 2nd Ray, Open Approach (ICD-10-PCS; 2025-02-10)
PROC: 0L8W0ZZ Division of Left Foot Tendon, Open Approach (ICD-10-PCS; 2025-02-10)
DX: A41.9 Sepsis, unspecified organism (principal); N17.0 Acute kidney failure with tubular necrosis; E11.621 Type 2 diabetes mellitus with foot ulcer; E87.1 Hypo-osmolality and hyponatremia; L97.529 Non-pressure chronic ulcer of other part of left foot with unspecified severity; L03.116 Cellulitis of left lower limb; D64.9 Anemia, unspecified; L02.612 Cutaneous abscess of left foot; M86.8X7 Other osteomyelitis, ankle and foot; E11.65 Type 2 diabetes mellitus with hyperglycemia; M20.42 Other hammer toe(s) (acquired), left foot; E11.69 Type 2 diabetes mellitus with other specified complication; N30.00 Acute cystitis without hematuria; E78.5 Hyperlipidemia, unspecified; F15.20 Other stimulant dependence, uncomplicated; I10 Essential (primary) hypertension; Z83.3 Family history of diabetes mellitus; Z91.148 Patient's other noncompliance with medication regimen for other reason
CPT/HCPCS: 36415; 71045; 73700; 73718; 80048; 80053; 80061; 80076; 80202; 80307; 81001; 82306; 82565; 82570; 82607; 82962; 83036; 83605; 83735; 84156; 84300; 84443; 85025; 85610; 85652; 85730; 86850; 86900; 86901; 87040; 87070; 87075; 87077; 87186; 87205; 93005; 93925; 96361; 96365; G0378; J0692; J1815; J2250; J2405; J2704; J3490